=== PATIENT | female | born 1980 | race Caucasian/White ===

== ENCOUNTER 2019-07-28 14:42 | Inpatient (IN) | payer MEDICAID ==
[~2019-07-28] VITALS: Ht 162.6 cm; Wt 67.5 kg
[2019-07-28] MEDS ORDERED: magnesium hydroxide 30ml (MOM) UD suspension PO PRN (16:30)
[2019-07-28] MEDS ORDERED: loperamide 2mg capsule PO PRN (16:30)
[2019-07-28] MEDS ORDERED: traZODone 50mg tablet PO PRN (16:30)
[2019-07-28] MEDS ORDERED: LORazepam 0.5 MG tablet PO PRN (16:30)
[2019-07-28] MEDS ORDERED: acetaminophen 325mg tablet PO PRN ×2 (16:30)
[2019-07-28] MEDS ORDERED: mag hydrox/Alum hydrox/simeth 30ml oral suspension PO PRN (16:30)
[2019-07-28] MEDS ORDERED: quetiapine 100mg tablet PO PRN (16:30)
[2019-07-28 17:21] VITALS: BP 130/100
[2019-07-28] MEDS ORDERED: NO HOME MEDS (18:03)
--- NOTE | 2019-07-28 18:09 | NUR ---
ADMIT NOTE The patient is a 38 year old woman s/p suicide attempt via alcohol and Tylenol PM. ETOH level was 0.391. Minimizing attempt. Reported fighting with , drinking and overdose. Similar incident 9 months ago. Also another attempt at age 19. Tearful and emotional, "My decided to throw his ring at me and took off, I wanted to stop thinking about him, I wanted to go to sleep, I just took more and more Tylenol, I just wanted to go to sleep." has left with their daughter and patient is now alone and will go home to an empty house.
[2019-07-28 20:00] VITALS: BP 149/105
--- NOTE | 2019-07-29 01:51 | NUR ---
Nursing Progress Note: Legal hold: 5150 Client on involuntary status for DTS. Report received from TRAE Snow with use of SBAR. Why are they here: The patient is a 38 year old woman s/p suicide attempt via alcohol and Tylenol PM. ETOH level was 0.391. Minimizing attempt. Reported fighting with , drinking and overdose. Similar incident 9 months ago. Also another attempt at age 19. Tearful and emotional, "My decided to throw his ring at me and took off, I wanted to stop thinking about him, I wanted to go to sleep, I just took more and more Tylenol, I just wanted to go to sleep." has left with their daughter and patient is now alone and will go home to an empty house. Assessment What has happened this shift: The patient was seen at bedside for 1:1. She was quite teary eyed during interview. She reports that she wasn't trying to harm herself. "I just wanted to go to sleep and not have to think about him taking my child. I'm going through a divorce right now and I miss my daughter. She's with my , and he always puts his buddies ahead of us. He drops her off somewhere to go get drunk, and I have no idea where she is." The patient reports that she doesn't take any medication for depression or anything. She went to bed soon after this interview. S/I, H/I: +SI A/VH: Denies Sleep: See sleep assessment ADL's: Independent Group attendance: No groups at night Were meds taken: No meds ordered Any med S/E No Mental Status Exam Appearance: Well groomed woman with red hair, wearing green unit scrubs Eye contact: direct Behavior: Depressed, sad, crying Speech: Clear, normal rate/rhythm Mood: depressed Affect: Restricted Thought process: Linear Thought Content: Her child's well-being Cognition: A/Ox4 Insight: Poor Judgment: Poor Interventions PRN's used: None Therapeutic interventions: 1:1 assessment, active listening, medication administration/education/monitoring, reality orientation, show of support, ensured contract for safety, Q 15 min safety checks. Restraints/seclusion/emergency medication: N/A Justification of Continued Inpatient Treatment: Patient requires evaluation and treatment for depression before discharge to prevent further SA and re-admissions.
[2019-07-29 07:19] LABS: HEMOGLOBIN A1C 4.8 % (4.5-6.2)
[2019-07-29 07:21] LABS: CHOL/HDL RATIO 4.9 (0.00-4.99); CHOLESTEROL 257 MG/DL (0-200); HDL CHOLESTEROL 52 MG/DL (35-60); LDL CHOLESTEROL 177 MG/DL (50-100); TRIGLYCERIDES 87 MG/DL (20-135)
[2019-07-29 07:28] VITALS: BP 150/98
--- NOTE | 2019-07-29 10:00 | NUR ---
Group Therapy: Process Group This Clinicians goals for this process group were as follows: (1) Ask scaling questions about patients current anxiety, depression, and irritability symptoms as a check-in. (2) Share psychoeducation about emotional/situational triggers as they relate to the onset of unwanted mental health symptoms. (3) Identify examples of emotional/situational triggers within the group milieu. (4) Share psychoeducation on interventions as tools to reduce emotional escalation. (5) Identify several interventions within the group milieu that patients may utilizing in reducing emotional escalation caused by emotional/situational triggers. (6) Engage patients in discussion of the topics shared within the group milieu. Patient identified experiencing the following levels of anxiety, depression, and anger/irritability while present in the group milieu. Anxiety: 02/20 Depression: 02/20 Anger/irritability: 02/20 Patient presented as open and cooperative within the group milieu. Patient was dressed in nondescript personal clothing that was appropriate for the situation. Patient presented as nonobtrusive and verbally engaged within the group milieu. During the conversation on emotional/situational triggers, Patient identified that, "Going through a divorce," was an example of a situational trigger. In the context of identifying interventions that one could utilize to reduce the acuity of unwanted depression symptoms, Patient stated that being around people who could make her, "Laugh," helped her to reduce her depression symptoms. Patient noted that she drank extensively due to personal stress associated with going through a divorce, which led to her current hospitalization. Jt Angulo MA, DAILY Addendum: 07/29/19 at 1132 by Jt Angulo Amended: Links added.
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
[2019-07-29 20:11] VITALS: BP 144/98
[2019-07-30] MEDS ORDERED: propranolol 10mg tablet PO ONE (00:15)
--- NOTE | 2019-07-30 01:23 | NUR ---
Nursing Progress Note: Legal hold: 5150 Client on involuntary status for DTS. Report received from Edy RN with use of SBAR. Why are they here: The patient is a 38 year old woman s/p suicide attempt via alcohol and Tylenol PM. ETOH level was 0.391. Minimizing attempt. Reported fighting with , drinking and overdose. Similar incident 9 months ago. Also another attempt at age 19. Tearful and emotional, "My decided to throw his ring at me and took off, I wanted to stop thinking about him, I wanted to go to sleep, I just took more and more Tylenol, I just wanted to go to sleep." has left with their daughter and patient is now alone and will go home to an empty house. Assessment What has happened this shift: Pt in the group room engaging with a peer and watching TV. She remained here most of shift, returning to her room after snack. During assessment, pt was linear and goal-focused, inquiring as to the process for her hold and attempting to sort through the various providers she met with today. Pt is concerned about her job, stating "If I stay longer I may lose it. And I need to care for my home." Pt states she doesn't think getting back with her ex- is a good idea, and that she may give counseling another try "So long as it is different than my last experience. I did not relate to that counseling session." Pt denies SI but endorses anxiety 4/10. She states she doesn't really want to , but that her "thoughts race and overwhelm me and I just need them to stop." Pt is discussed former prescriptions of lisinopril and "maybe something for cholesterol"; Hospitalist note was entered late this evening with subsequent STAT propranolol due to physical findings. Pt's BP 126/95 and HR 98 at 0025, prior to administration. Pt not requesting any PRNs while here and seems to be coping and sleeping well. S/I, H/I: Denies A/VH: Denies Sleep: See sleep assessment ADL's: Independent Group attendance: N/A Were meds taken: Yes - STAT Propranolol 10mg Any med S/E: None reported, none observed Mental Status Exam Appearance: Clean and neat wearing personal clothing Eye contact: Direct Behavior: Watching tv, engaging with peers, attending snack Speech: Clear, normal rate/rhythm Mood: "Better", Endorsed anxiety /10 Affect: Blunted with occasional brightening Thought process: Linear Thought Content: discharging and process of [facility] Cognition: A/Ox4 Insight: Poor to fair Judgment: Poor to fair Interventions PRN's used: None Therapeutic interventions: 1:1 assessment, active listening, medication administration/education/monitoring, reality orientation, show of support, ensured contract for safety, Q 15 min safety checks. Restraints/seclusion/emergency medication: N/A Justification of Continued Inpatient Treatment: Patient requires evaluation and treatment for depression before discharge to prevent further SA and re-admissions.
[2019-07-30 07:45] VITALS: BP 135/99
[2019-07-30] MEDS: propranolol 10mg tablet PO SCH ×2 (08:17→20:41)
[2019-07-30] MEDS: atorvastatin 20mg tablet PO SCH (08:17)
[2019-07-30 09:23] LABS: CLARITY,URINE SLIGHTLY CLOUDY (Clear); GLUCOSE, URINE NEGATIVE (Neg); KETONES,URINE TRACE mg/dl (Neg); LEUKOCYTE ESTERASE ,URINE NEGATIVE (Neg); NITRITES, URINE NEGATIVE (Neg); OCCULT BLOOD,URINE LARGE (Neg); PROTEIN,URINE 30 mg/dl (Neg)
[2019-07-30 09:34] LABS: COLOR,URINE DARK YELLOW (Yellow); UA COLLECTION TYPE CLN CATCH MIDSTREAM
[2019-07-30 09:36] LABS: BACTERIA,URINE NONE SEEN /HPF (Neg); MUCUS STRANDS FEW /LPF (Neg); SQUAMOUS EPITHELIAL CELL,UR FEW /LPF (FEW); WBC,URINE 0-4 /HPF (0-4)
--- NOTE | 2019-07-30 10:00 | NUR ---
Group Therapy: Process Group This Clinicians goals for this process group were as follows: (1) Ask scaling questions about Patients current anxiety, depression, and irritability symptoms as a check-in. (2) Share with Patients psychoeducation about the importance of being able to identify safe, and supportive people who can assist them with their mental and emotional needs. (3) Share psychoeducation on interpersonal boundaries and considerations to assist Patients in developing the ability to discern which groups and individuals will be helpful in assisting them during times of emotional escalation and crisis. (4) Engage Patients in discussion of the topics discussed within the group milieu. Patient identified experiencing the following levels of anxiety, depression, and anger/irritability while present in the group milieu. Anxiety: 02/20 Depression: 02/20 Anger/irritability: 02/20 Patient presented as open and cooperative within the group milieu. Patient was dressed in nondescript personal clothing that was appropriate for the setting. Patient presented as verbally engaged and nonobtrusive within the group setting. When asked by this Clinician whom she could identify as a close person who she could put on a, "Safety plan," in the case of an emergency, Patient identified her Sister. Patient shared her impression that she needed to be wary about what information she shared with casual friends, regarding her mental health issues because she didn't want her friends to feel that they had to, "Take care of me," instead of simply including her in social activities. Jt Angulo MA, DAILY Addendum: 07/30/19 at 1125 by Jt Angulo SS Amended: Links added.
[2019-07-30 10:26] LABS: HCG SERUM QL NEGATIVE
--- NOTE | 2019-07-30 15:42 | NUR ---
NURSING PROGRESS NOTE Legal hold: 5150 Client on involuntary status for DTS. Report received from TRAE Berg with use of SBAR. Why are they here: The patient is a 38 year old woman who attempted suicide via alcohol and Tylenol PM. ETOH level was 0.391. Minimizing attempt. Reported fighting with , drinking and overdose. Similar incident 9 months ago. Also another attempt at age 19. Tearful and emotional, "My decided to throw his ring at me and took off, I wanted to stop thinking about him, I wanted to go to sleep, I just took more and more Tylenol, I just wanted to go to sleep." has left with their daughter and patient is now alone and will go home to an empty house. Assessment What has happened this shift: Patient was awake in her bed at the change of shift. She was cooperative with patient assessment. She denies depression, anxiety, SI, HI, and A/V H. Clarifying possible suicidal thoughts, she indicated she feels safe going home. She stated, I dont want to . Pt minimizes her suicide attempt saying she just wanted to go to sleep. She justified her alcohol use indicating that she is tempted to drink because her drinks. She became tearful as she talked about her daughter. Pt indicated that her mom and sister are her support system. Pt up to the group room for meals. She attended AM group. She was up in the group room during the afternoon. S/I, H/I: Denies A/VH: Denies Sleep: Slept well during the night ADL's: Independent Group attendance: Yes Were meds taken: Yes Any med S/E: None reported or observed Mental Status Exam Appearance: Neat and clean Eye contact: Direct Behavior: Pleasant and cooperative Speech: Normal rate and rhythm Mood: Sad Affect: Constricted Thought process: Linear and connected Thought Content: Misses her daughter Cognition: A/Ox4 Insight: Poor Judgment: fair Interventions PRN's used: None Therapeutic interventions: 1:1 assessment, active listening, medication administration/education/monitoring, reality orientation, show of support, ensured contract for safety, monitored labs, Q 15 min safety checks. Restraints/seclusion/emergency medication: N/A Justification of Continued Inpatient Treatment: Justification for continued patient stay: Pt. requires interruption of current crisis; medication adjustments and monitoring for effects; and a safe and therapeutic environment.
[2019-07-30 20:00] VITALS: BP 146/101
[2019-07-30 20:23] LABS: BASOPHILS # (AUTO) 0.1 X10'3 (0-0.2); BASOPHILS % (AUTO) 0.7 % (0-1); EOSINOPHILS # (AUTO) 0.8 X10'3 (0-0.9); EOSINOPHILS % (AUTO) 6.5 % (0-6); HEMATOCRIT 33.4 % (35.0-45.0); HEMOGLOBIN 11.1 g/dl (12.0-16.0); LYMPHOCYTES # (AUTO) 3.2 X10'3 (1.1-4.8); LYMPHOCYTES % (AUTO) 26.4 % (21-51); MEAN CORPUSCULAR HEMOGLOBIN 39.4 PG (27.0-31.0); MEAN CORPUSCULAR HGB CONC 33.4 g/dL (33.0-36.5); MONOCYTES # (AUTO) 0.9 X10'3 (0-0.9); MONOCYTES % (AUTO) 7.3 % (2-12); NEUTROPHILS # (AUTO) 7.1 X10'3 (1.8-7.7); NEUTROPHILS % (AUTO) 59.1 % (42-75); PLATELET COUNT 189 X10'3 (140-440); RED BLOOD COUNT 2.83 X10'6 (4.20-5.60); RED CELL DISTRIBUTION WIDTH 23.6 % (11.5-14.5)
[2019-07-30 20:38] LABS: PLATELET ESTIMATE NORMAL
[2019-07-30 20:39] LABS: ALANINE AMINOTRANSFERASE 123 U/L (12-78); ALBUMIN 3.7 G/DL (3.4-5.0); ALBUMIN/GLOBULIN RATIO 0.7 (1.1-1.5); ALKALINE PHOSPHATASE 95 IU/L (46-116); ANION GAP 11 (8-16); ANISOCYTOSIS 3+; ASPARTATE AMINO TRANSFERASE 184 U/L (10-37); BILIRUBIN,TOTAL 0.3 MG/DL (0.1-1.0); BLOOD UREA NITROGEN 11 MG/DL (7-18); BUN/CREATININE RATIO 10.7 (6.6-38.0); CALCIUM 9.8 MG/DL (8.5-10.1); CHLORIDE 103 MMOL/L (99-107); CREATININE 1.03 MG/DL (0.40-0.90); GLUCOSE 89 MG/DL (70-104); POLYCHROMASIA 2+; POTASSIUM 3.7 MMOL/L (3.5-5.1); SODIUM 139 MMOL/L (135-145); TOTAL CARBON DIOXIDE 25.1 MMOL/L (24-32); TOTAL PROTEIN 8.7 G/DL (6.4-8.2); eGFR 60 ML/MIN
[2019-07-30 20:47] LABS: MAGNESIUM 1.9 MG/DL (1.5-2.4); PHOSPHORUS 4.7 MG/DL (2.3-4.5)
--- NOTE | 2019-07-31 00:56 | NUR ---
Nursing Progress Note: Legal hold: 5150 Ex 07/31/19 @1620 Client on involuntary status for DTS. Report received from TRAE Martini with use of SBAR. Why are they here: The patient is a 38 year old woman s/p suicide attempt via alcohol and Tylenol PM. ETOH level was 0.391. Minimizing attempt. Reported fighting with , drinking and overdose. Similar incident 9 months ago. Also another attempt at age 19. Tearful and emotional, "My decided to throw his ring at me and took off, I wanted to stop thinking about him, I wanted to go to sleep, I just took more and more Tylenol, I just wanted to go to sleep." has left with their daughter and patient is now alone and will go home to an empty house. Assessment What has happened this shift: Pt was in her room coloring during shift change. She states that she was trying to stay out of the drama and that she had a pretty good day. Pt states that she is ready to get her life on the right path. She is ready to go back to work and doesnt want to lose her house. She states that she knows that things are not going to be the same because her ex- will not be there but she feels this will be better as there wont be so much stress with all the arguing and him coming in and out all the time. When asked about S/I, she denies and she states that it was never her intention to end her life it was just her trying to stop thinking about him and stopping the emotions and going to sleep. Which she is aware that that is the wrong way to do it. Pt is very goal oriented and is looking forward to going back home to her daughter and is willing to do some kind of counseling. She was cooperative during 1:1 physical assessment and took her HS medication. She spent some more time in rec room watching TV and socializing appropriately with other patients before going to sleep. CMP, CBC/diff, and THS lab draw done. Refer to labs. New order for levothyroxine 25mg in place, also elevated LFTs order for Hep panel, HIV, and liver US in place for this morning. S/I, H/I: Denies A/VH: Denies Sleep: Currently sleeping, see sleep assessment for total hours ADL's: Independent Group attendance: N/A Were meds taken: Yes Any med S/E: None reported, none observed Mental Status Exam Appearance: Clean and neat wearing personal clothing Eye contact: Direct Behavior: Calm, cooperative, pleasant, socializing with peers Speech: Clear, normal rate/rhythm Mood: "I'm good, feel ready to go home" Affect: Appropriate, congruent with mood Thought process: Linear Thought Content: discharging, meds, family, goal oriented, minimizing all symptoms Cognition: A/Ox4 Insight: Poor to fair Judgment: Poor to fair Interventions PRN's used: None Therapeutic interventions: 1:1 assessment, active listening, medication administration/education/monitoring, reality orientation, show of support, ensured contract for safety, Q 15 min safety checks. Restraints/seclusion/emergency medication: N/A Justification of Continued Inpatient Treatment: Patient requires evaluation and treatment for depression before discharge to prevent further SA and re-admissions.
[2019-07-31] MEDS: levoTHYROXINE 25mcg tablet PO SCH (07:09)
[2019-07-31 08:00] VITALS: BP 138/107
[2019-07-31] MEDS: atorvastatin 20mg tablet PO SCH (08:12)
[2019-07-31] MEDS: propranolol 10mg tablet PO SCH ×2 (08:12→20:28)
[2019-07-31 08:13] LABS: BASOPHILS # (AUTO) 0.1 X10'3 (0-0.2); BASOPHILS % (AUTO) 0.9 % (0-1); EOSINOPHILS # (AUTO) 0.7 X10'3 (0-0.9); HEMOGLOBIN 10.9 g/dl (12.0-16.0); LYMPHOCYTES # (AUTO) 2.7 X10'3 (1.1-4.8); LYMPHOCYTES % (AUTO) 24.8 % (21-51); MEAN CORPUSCULAR HEMOGLOBIN 40.2 PG (27.0-31.0); MEAN CORPUSCULAR VOLUME 118.4 FL (78-98); MONOCYTES # (AUTO) 0.8 X10'3 (0-0.9); MONOCYTES % (AUTO) 7.9 % (2-12); NEUTROPHILS # (AUTO) 6.4 X10'3 (1.8-7.7); NEUTROPHILS % (AUTO) 59.4 % (42-75); PLATELET COUNT 218 X10'3 (140-440); RED CELL DISTRIBUTION WIDTH 23.7 % (11.5-14.5); WHITE BLOOD COUNT 10.7 X10'3 (4.5-11.0)
[2019-07-31 08:31] LABS: ALANINE AMINOTRANSFERASE 117 U/L (12-78); ALBUMIN 3.5 G/DL (3.4-5.0); ALBUMIN/GLOBULIN RATIO 0.8 (1.1-1.5); ALKALINE PHOSPHATASE 80 IU/L (46-116); ANION GAP 13 (8-16); ASPARTATE AMINO TRANSFERASE 180 U/L (10-37); BILIRUBIN,TOTAL 0.4 MG/DL (0.1-1.0); BLOOD UREA NITROGEN 12 MG/DL (7-18); BUN/CREATININE RATIO 15.8 (6.6-38.0); CALCIUM 9.3 MG/DL (8.5-10.1); CHLORIDE 104 MMOL/L (99-107); CREATININE 0.76 MG/DL (0.40-0.90); GLUCOSE 92 MG/DL (70-104); MAGNESIUM 2.1 MG/DL (1.5-2.4); PHOSPHORUS 5.2 MG/DL (2.3-4.5); SODIUM 139 MMOL/L (135-145); TOTAL CARBON DIOXIDE 21.6 MMOL/L (24-32); TOTAL PROTEIN 8.1 G/DL (6.4-8.2); eGFR 85 ML/MIN
[2019-07-31 08:59] LABS: ANISOCYTOSIS 3+; PLATELET ESTIMATE NORMAL; POLYCHROMASIA FEW
[2019-07-31 09:41] LABS: HIV ANTIBODY 1&2 RAPID NON-REACTIVE (Neg)
--- NOTE | 2019-07-31 10:00 | NUR ---
Group Therapy: Process Group This Clinicians goals for this process group were as follows: (1) Ask scaling questions about patients current anxiety, depression, and irritability symptoms as a check-in. (2) Share psychoeducation about emotional relaxation techniques with patients, including information on: mindfulness, meditation controlled breathing, progressive muscle relaxation, guided visualization. (3) Model and practice controlled breathing, progressive muscle relaxation, and guided visualization with patients within the group milieu. (4) Process patients comments and reflections on the before-mentioned activities after they have participated in them. Patient identified experiencing the following levels of anxiety, depression, and anger/irritability while present in the group milieu. Anxiety: 04/20 Depression: 02/20 Anger/irritability: 02/20 Patient presented as open and cooperative within the group milieu. Patient was dressed in nondescript personal clothing--a black shirt and missael pants that were appropriate for the setting. Patient presented as verbally engaged and nonobtrusive during psychoeducation, the modeling and the practice of controlled breathing, progressive muscle relaxation, and guided visualization. Patient shared that a positive memory that she identified as a potential, "Safe place," was time that she had spent in the past near and around the ocean. This Clinician checked in again regarding her subjective impression of her anxiety symptoms at the end of the session to see if her number decreased from a 3/10. Patient reported that it remained at a 3/10 and that she was frustrated that she had to stay in the medical milieu for another day. Jt Angulo MA, DAILY Addendum: 07/31/19 at 1124 by Jt Angulo SS Amended: Links added.
--- NOTE | 2019-07-31 16:06 | NUR ---
Nursing Progress Note Client on voluntary status Report received from Kim Kaur RN with use of SBAR. Why are they here: The patient is a 38 year old woman s/p suicide attempt via alcohol and Tylenol PM. ETOH level was 0.391. Minimizing attempt. Reported fighting with , drinking and overdose. Similar incident 9 months ago. Also another attempt at age 19. Tearful and emotional, "My decided to throw his ring at me and took off, I wanted to stop thinking about him, I wanted to go to sleep, I just took more and more Tylenol, I just wanted to go to sleep." has left with their daughter and patient is now alone and will go home to an empty house. Assessment What has happened this shift: Hep panel, HIV, CXR, liver US and Thyroid US completed. Pt NPO after breakfast. Pt states she is on a gluten free diet. She denies SI at this time. She is now voluntary and wants to go home tomorrow so she can go back to work. S/I, H/I: Denies A/VH: Denies Sleep: Currently sleeping, see sleep assessment for total hours ADL's: Independent Group attendance: Yes Were meds taken: Yes Any med S/E: None reported, none observed Mental Status Exam Appearance: Clean, wearing all black clothing Eye contact: Direct Behavior: Calm, Cooperative Speech: Clear, normal rate/rhythm Mood: Appears depressed; states she is concerned over finances Affect: Appropriate, congruent with mood Thought process: Linear Thought Content: finances; going home Cognition: A/Ox4 Insight: Fair Judgment: Fair Interventions PRN's used: None Therapeutic interventions: 1:1 assessment, provided therapeutic communication and active listening, medication administration/education/monitoring, Q 15 min safety checks. Restraints/seclusion/emergency medication: N/A Justification of Continued Inpatient Treatment: Patient requires evaluation and treatment for depression before discharge to prevent further SA and re-admissions.
--- NOTE | 2019-07-31 16:15 | NUR ---
1:1- Brief Interventions- Alcohol use; Safety Planning Presenting Issues: Pt's AUDIT score suggests that pt's current drinking behaviors puts her at risk of developing serious health problems. Pt & her family have disclosed multiple incidences of pt overdosing and alcohol use. Interventions: SS met with pt and engaged her in Brief Interventions via [place] strategies to assess pt's willingness to engage in services/treatment to address her use of alcohol. Per discussion, has weighed the pros & cons of services and is now open to engage with a provider. SS also engaged pt in developing a Crisis Episode Safety Plan, pt able to identify warning signs of a potential crisis, activities that she can engage in to distract from her having to perseverate on negatives, people in her life that she can call when her emotional percolator starts to [facility], local & national agencies that can provide telephonic support, local crisis service providers. Pt also will get rid of all alcoholic beverages in he home and toss out OTCs she has at home. Pt plans to talk to her mother & ex about how to ensure safety for her 7y/o dtr when pt experience depression again. Plan SS will contact [facility] to coordinate dcp. Pt to discharge tomorrow. Heather Fulton LCSW Addendum: 07/31/19 at 1658 by Heather Fulton Amended: Links added.
--- NOTE | 2019-07-31 16:58 | NUR ---
DCP Presenting Issues: Pt's scheduled to d/c tomorrow, attending physician requesting SS support to facilitate dcp. Interventions: SS met w/pt and engaged her in dcp activities. Per discussion, pt is now willing to access outpatient psychiatric care. SS had t/c with [facility] and coordinated dcp. Plan: Pt to d/c tomorrow. Heather Fulton LCSW Addendum: 07/31/19 at 1701 by Heather Fulton Amended: Links added.
[2019-07-31 20:06] VITALS: BP 136/92
[2019-07-31] MEDS: busPIRone 5mg tablet PO SCH (20:28)
--- NOTE | 2019-08-01 00:14 | NUR ---
Nursing Progress Note: Legal hold: VOL Client on involuntary status for DTS. Report received from TRAE Mccain with use of SBAR. Why are they here: The patient is a 38 year old woman s/p suicide attempt via alcohol and Tylenol PM. ETOH level was 0.391. Minimizing attempt. Reported fighting with , drinking and overdose. Similar incident 9 months ago. Also another attempt at age 19. Tearful and emotional, "My decided to throw his ring at me and took off, I wanted to stop thinking about him, I wanted to go to sleep, I just took more and more Tylenol, I just wanted to go to sleep." has left with their daughter and patient is now alone and will go home to an empty house. Assessment What has happened this shift: Pt was in rec room watching TV during shift change. She states that she is fine with staying here for another 24 hours but is eager to go home as she needs to go back to work. She denies any S/I, H/I, depression and states that she is feeling a little anxious but is all related to all these medical procedures that she was getting done earlier. She was cooperative during 1:1physical assessment and took all her meds. She did have some questions about her medications since she wasnt sure what all she was taking. This RN provided education and she demonstrated understanding. She was also concerned about not being able to pick them up from her pharmacy after she gets discharge because she will not have a vehicle. PT states that she does not want to stay here longer than tomorrow morning. PT retired to bed after she received her medications. S/I, H/I: Denies A/VH: Denies Sleep: Currently sleeping, see sleep assessment for total hours ADL's: Independent Group attendance: N/A Were meds taken: Yes Any med S/E: None reported, none observed Mental Status Exam Appearance: Clean and neat wearing personal clothing Eye contact: Direct Behavior: Calm, cooperative, pleasant, socializing with peers Speech: Clear, normal rate/rhythm Mood: Euthymic Affect: Appropriate, congruent with mood Thought process: Linear Thought Content: discharging, meds, family, goal oriented, work Cognition: A/Ox4 Insight: Poor to fair Judgment: Poor to fair Interventions PRN's used: None Therapeutic interventions: 1:1 assessment, active listening, medication administration/education/monitoring, reality orientation, show of support, ensured contract for safety, Q 15 min safety checks. Restraints/seclusion/emergency medication: N/A Justification of Continued Inpatient Treatment: Patient requires evaluation and treatment for depression before discharge to prevent further SA and re-admissions.
[2019-08-01 06:32] LABS: BASOPHILS # (AUTO) 0.1 X10'3 (0-0.2); BASOPHILS % (AUTO) 1.3 % (0-1); EOSINOPHILS # (AUTO) 0.6 X10'3 (0-0.9); EOSINOPHILS % (AUTO) 6.8 % (0-6); HEMATOCRIT 34.5 % (35.0-45.0); HEMOGLOBIN 11.5 g/dl (12.0-16.0); LYMPHOCYTES # (AUTO) 2.2 X10'3 (1.1-4.8); LYMPHOCYTES % (AUTO) 23.8 % (21-51); MEAN CORPUSCULAR HEMOGLOBIN 39.3 PG (27.0-31.0); MEAN CORPUSCULAR HGB CONC 33.2 g/dL (33.0-36.5); MEAN CORPUSCULAR VOLUME 118.2 FL (78-98); MEAN PLATELET VOLUME 8.1 FL (7.4-10.4); MONOCYTES # (AUTO) 0.9 X10'3 (0-0.9); MONOCYTES % (AUTO) 9.9 % (2-12); NEUTROPHILS # (AUTO) 5.3 X10'3 (1.8-7.7); NEUTROPHILS % (AUTO) 58.2 % (42-75); PLATELET COUNT 226 X10'3 (140-440); RED BLOOD COUNT 2.92 X10'6 (4.20-5.60); RED CELL DISTRIBUTION WIDTH 23.3 % (11.5-14.5); WHITE BLOOD COUNT 9.2 X10'3 (4.5-11.0)
[2019-08-01 06:45] LABS: ALANINE AMINOTRANSFERASE 127 U/L (12-78); ALBUMIN 3.6 G/DL (3.4-5.0); ALBUMIN/GLOBULIN RATIO 0.8 (1.1-1.5); ALKALINE PHOSPHATASE 80 IU/L (46-116); ANION GAP 11 (8-16); ASPARTATE AMINO TRANSFERASE 171 U/L (10-37); BILIRUBIN,TOTAL 0.3 MG/DL (0.1-1.0); BLOOD UREA NITROGEN 13 MG/DL (7-18); BUN/CREATININE RATIO 17.1 (6.6-38.0); CALCIUM 9.6 MG/DL (8.5-10.1); CHLORIDE 106 MMOL/L (99-107); CREATININE 0.76 MG/DL (0.40-0.90); GLUCOSE 92 MG/DL (70-104); MAGNESIUM 2.2 MG/DL (1.5-2.4); PHOSPHORUS 5.7 MG/DL (2.3-4.5); POTASSIUM 3.6 MMOL/L (3.5-5.1); SODIUM 141 MMOL/L (135-145); TOTAL CARBON DIOXIDE 24.5 MMOL/L (24-32); eGFR 85 ML/MIN
[2019-08-01] MEDS: levoTHYROXINE 25mcg tablet PO SCH (06:53)
[2019-08-01 07:15] LABS: PLATELET ESTIMATE NORMAL
[2019-08-01 07:16] LABS: POLYCHROMASIA 1+
[2019-08-01 07:17] LABS: ANISOCYTOSIS 3+; ROULEAUX 1+; TEAR DROP CELLS FEW
[2019-08-01 08:00] VITALS: BP 141/98
[2019-08-01] MEDS: propranolol 10mg tablet PO SCH (08:16)
[2019-08-01] MEDS: busPIRone 5mg tablet PO SCH (08:16)
[2019-08-01] MEDS: atorvastatin 20mg tablet PO SCH (08:16)
[2019-08-01] MEDS ORDERED: BUSP5TAB26 PO (08:42)
[2019-08-01] MEDS ORDERED: PROP10TA10 PO (08:42)
[2019-08-01] MEDS ORDERED: ATOR20TA66 PO (08:42)
[2019-08-01] MEDS ORDERED: LEVO25TA7 PO (08:42)
[2019-08-01] MEDS ORDERED: TRAZ-251 PO (08:42)
--- NOTE | 2019-08-01 10:00 | NUR ---
DISCHARGE NOTE Pt was brought into the hospital s/p SA via ETOH and Tylenol PM. ETOH level was 0.391. Reported Similar incident 9 months ago. Also another attempt at age 19. Tearful and emotional, "My decided to throw his ring at me and took off, I wanted to stop thinking about him, I wanted to go to sleep, I just took more and more Tylenol, I just wanted to go to sleep." has left with their daughter. Pt was treated in the hospital for the following: Per Dr. 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 "significant anxiety which is also observable, this anxiety has led to poor judgment recently, impulsivity, putting her life at risk, I think is important that we start to treat her anxiety see her tolerance to medication, she seems to have some insight into her issues and problems, however she will be needing long-term psychotherapy which she understands, apparently concerned about her going back to her house where she will be alone by herself. She agreed to start buspirone 5 mg p.o. 3 times daily." Pt's personal property inventoried and signed out by pt and NANCY Vail. Medications from the pharmacy returned to pt and pt signed pharmacy discharge medication list. Pt is not a smoker. She declined smoking cessation information. Pt educated to follow up appointments through [facility] and documents of times and dates provided. 14 day medication prescriptions for all medications called into pharmacy of choice.
[2019-08-01 13:10] LABS: HBSAG SCREEN Negative (Negative); HEP A AB, IGM Negative (Negative); HEP B CORE AB, IGM Negative (Negative); HEPATITIS C ANTIBODY <0.1 s/co ratio (0.0-0.9)
--- NOTE | 2019-08-03 07:59 | NUR ---
Discharge Pt's d/c'd over the weekend w/plan to f/u with [facility]. referral's closed. GREGORY KearnsW Addendum: 08/03/19 at 0800 by Heather Fulton Amended: Links added.
== END 2019-08-01 10:00 | disposition home or self-care (01) | DRG 755 ==
LOC: ADULT MH 14:42
PROVIDERS: ADMIT Psychiatry & Neurology Psychiatry; ATTEND Psychiatry & Neurology Psychiatry
DX: F43.25 Adjustment disorder with mixed disturbance of emotions and conduct (principal); D53.9 Nutritional anemia, unspecified; E78.5 Hyperlipidemia, unspecified; T39.1X2A Poisoning by 4-Aminophenol derivatives, intentional self-harm, initial encounter; F32.9 Major depressive disorder, single episode, unspecified; F41.9 Anxiety disorder, unspecified; R00.0 Tachycardia, unspecified; Z60.2 Problems related to living alone; F17.210 Nicotine dependence, cigarettes, uncomplicated; R79.89 Other specified abnormal findings of blood chemistry; R94.6 Abnormal results of thyroid function studies; I10 Essential (primary) hypertension; Z63.0 Problems in relationship with spouse or partner; Z79.890 Hormone replacement therapy; Z98.891 History of uterine scar from previous surgery; Y92.89 Other specified places as the place of occurrence of the external cause; Z88.5 Allergy status to narcotic agent; Z72.89 Other problems related to lifestyle
CPT/HCPCS: 36415; 71045; 76536; 76700; 80053; 80061; 81001; 82607; 83036; 83735; 84100; 84439; 84443; 84703; 85025; 86703; 86705; 86706; 86709; 86803; 87081; 87340; 99285

== ENCOUNTER 2019-08-08 16:18 | Emergency (ER) | payer MEDICAID ==
[~2019-08-08] VITALS: Ht 165.1 cm; Wt 79.5 kg
[~2019-08-08 16:18] MED LIST: ATOR20TA66 PO; BUSP5TAB26 PO; LEVO25TA7 PO; PROP10TA10 PO; TRAZ-251 PO
[2019-08-08 17:07] LABS: BASOPHILS # (AUTO) 0.1 X10'3 (0-0.2); BASOPHILS % (AUTO) 0.8 % (0-1); EOSINOPHILS # (AUTO) 0.2 X10'3 (0-0.9); EOSINOPHILS % (AUTO) 1.7 % (0-6); HEMOGLOBIN 11.9 g/dl (12.0-16.0); LYMPHOCYTES # (AUTO) 3.4 X10'3 (1.1-4.8); LYMPHOCYTES % (AUTO) 38.9 % (21-51); MEAN CORPUSCULAR HEMOGLOBIN 38.2 PG (27.0-31.0); MEAN CORPUSCULAR HGB CONC 34.1 g/dL (33.0-36.5); MEAN CORPUSCULAR VOLUME 112.1 FL (78-98); MEAN PLATELET VOLUME 7.1 FL (7.4-10.4); MONOCYTES # (AUTO) 0.6 X10'3 (0-0.9); MONOCYTES % (AUTO) 6.5 % (2-12); NEUTROPHILS # (AUTO) 4.6 X10'3 (1.8-7.7); NEUTROPHILS % (AUTO) 52.1 % (42-75); PLATELET COUNT 314 X10'3 (140-440); RED BLOOD COUNT 3.12 X10'6 (4.20-5.60); RED CELL DISTRIBUTION WIDTH 22.7 % (11.5-14.5); WHITE BLOOD COUNT 8.8 X10'3 (4.5-11.0)
[2019-08-08 17:20] LABS: ALANINE AMINOTRANSFERASE 112 U/L (12-78); ALBUMIN 3.2 G/DL (3.4-5.0); ALBUMIN/GLOBULIN RATIO 0.8 (1.1-1.5); ALKALINE PHOSPHATASE 79 IU/L (46-116); ANION GAP 13 (8-16); ASPARTATE AMINO TRANSFERASE 160 U/L (10-37); BILIRUBIN,TOTAL 0.2 MG/DL (0.1-1.0); BLOOD UREA NITROGEN 9 MG/DL (7-18); BUN/CREATININE RATIO 11.8 (6.6-38.0); CALCIUM 7.9 MG/DL (8.5-10.1); CHLORIDE 112 MMOL/L (99-107); CREATININE 0.76 MG/DL (0.40-0.90); GLUCOSE 133 MG/DL (70-104); POTASSIUM 3.4 MMOL/L (3.5-5.1); SODIUM 152 MMOL/L (135-145); TOTAL CARBON DIOXIDE 27.1 MMOL/L (24-32); TOTAL PROTEIN 7.1 G/DL (6.4-8.2); eGFR 85 ML/MIN
[2019-08-08 17:22] LABS: ACETAMINOPHEN < 2.0 UG/ML (10-30)
[2019-08-08 17:30] LABS: ETHANOL 0.439 GM/DL (0.0-0.010)
[2019-08-08 17:54] LABS: URINE HCG NEGATIVE (NEG)
[2019-08-08 18:11] LABS: URINE AMPHETAMINE SCREEN NEGATIVE (Neg); URINE BARBITUATE SCREEN NEGATIVE (Neg); URINE BENZODIAZEPINES SCREEN NEGATIVE (Neg); URINE CANNABINOID SCREEN NEGATIVE (Neg); URINE COCAINE SCREEN NEGATIVE (Neg); URINE METHADONE SCREEN NEGATIVE (Neg); URINE OPIATE SCREEN NEGATIVE (Neg); URINE PHENCYCLIDINE SCREEN NEGATIVE (Neg)
[2019-08-08] MEDS ORDERED: normal saline 1000ML IV soln IVB ONE (18:20)
[2019-08-08] MEDS ORDERED: BUSP5TAB3 PO (19:04)
[2019-08-08] MEDS ORDERED: ATOR20TA PO (19:04)
[2019-08-08] MEDS ORDERED: TRAZ-251 PO (19:05)
[2019-08-08] MEDS ORDERED: PROP10TA10 PO (19:05)
[2019-08-08] MEDS ORDERED: LEVO25TA7 PO (19:05)
[2019-08-08 19:59] LABS: ALBUMIN 3.2 G/DL (3.4-5.0); ANION GAP 15 (8-16); BLOOD UREA NITROGEN 9 MG/DL (7-18); BUN/CREATININE RATIO 11.8 (6.6-38.0); CALCIUM 7.4 MG/DL (8.5-10.1); CHLORIDE 113 MMOL/L (99-107); CREATININE 0.76 MG/DL (0.40-0.90); GLUCOSE 120 MG/DL (70-104); POTASSIUM 3.4 MMOL/L (3.5-5.1); SODIUM 151 MMOL/L (135-145); TOTAL CARBON DIOXIDE 23.3 MMOL/L (24-32); eGFR 85 ML/MIN
[2019-08-08 20:24] VITALS: BP 140/98
== END 2019-08-08 21:05 | disposition home or self-care (01) ==
LOC: ER 16:19
DX: F10.129 Alcohol abuse with intoxication, unspecified (principal); I10 Essential (primary) hypertension; Z98.890 Other specified postprocedural states; Z88.5 Allergy status to narcotic agent; Z79.899 Other long term (current) drug therapy; Y90.0 Blood alcohol level of less than 20 mg/100 ml
CPT/HCPCS: 36415; 80048; 80053; 80305; 80320; 80329; 81025; 85025; 99285; J7030

== ENCOUNTER 2021-07-13 11:12 | Inpatient (IN) | payer MEDICAID ==
[~2021-07-13] VITALS: Ht 162.6 cm; Wt 71.9 kg
[~2021-07-13 11:12] MED LIST changes: +ATOR20TA PO; -ATOR20TA66 PO; -BUSP5TAB26 PO; +BUSP5TAB3 PO
[2021-07-13 11:36] LABS: BASOPHILS # (AUTO) 0.1 X10'3 (0-0.2); BASOPHILS % (AUTO) 0.5 % (0-1); EOSINOPHILS # (AUTO) 0.1 X10'3 (0-0.9); EOSINOPHILS % (AUTO) 0.5 % (0-6); HEMATOCRIT 34.6 % (35.0-45.0); HEMOGLOBIN 11.3 g/dl (12.0-16.0); LYMPHOCYTES # (AUTO) 2.1 X10'3 (1.1-4.8); LYMPHOCYTES % (AUTO) 16.9 % (21-51); MEAN CORPUSCULAR HEMOGLOBIN 30.8 PG (27.0-31.0); MEAN CORPUSCULAR HGB CONC 32.7 g/dL (33.0-36.5); MEAN CORPUSCULAR VOLUME 94.2 FL (78-98); MEAN PLATELET VOLUME 7.5 FL (7.4-10.4); MONOCYTES # (AUTO) 1.3 X10'3 (0-0.9); MONOCYTES % (AUTO) 10.9 % (2-12); NEUTROPHILS # (AUTO) 8.8 X10'3 (1.8-7.7); NEUTROPHILS % (AUTO) 71.2 % (42-75); PLATELET COUNT 76 X10'3 (140-440); RED BLOOD COUNT 3.67 X10'6 (4.20-5.60); RED CELL DISTRIBUTION WIDTH 19.8 % (11.5-14.5); WHITE BLOOD COUNT 12.4 X10'3 (4.5-11.0)
[2021-07-13 11:50] LABS: ALANINE AMINOTRANSFERASE 47 U/L (12-78); ALBUMIN 2.9 G/DL (3.4-5.0); ALBUMIN/GLOBULIN RATIO 0.7 (1.1-1.5); ALKALINE PHOSPHATASE 73 IU/L (46-116); ANION GAP 13 (8-16); ASPARTATE AMINO TRANSFERASE 61 U/L (10-37); BILIRUBIN,TOTAL 1.6 MG/DL (0.1-1.0); BLOOD UREA NITROGEN 9 MG/DL (7-18); BUN/CREATININE RATIO 9.3 (6.6-38.0); CALCIUM 8.8 MG/DL (8.5-10.1); CHLORIDE 104 MMOL/L (99-107); CREATININE 0.97 MG/DL (0.40-0.90); GLUCOSE 86 MG/DL (70-104); POTASSIUM 3.2 MMOL/L (3.5-5.1); SODIUM 138 MMOL/L (135-145); TOTAL CARBON DIOXIDE 20.7 MMOL/L (24-32); eGFR 64 ML/MIN
[2021-07-13 11:58] LABS: ETHANOL < 0.010 GM/DL (0.0-0.010)
[2021-07-13 12:11] LABS: URINE HCG NEGATIVE (NEG)
[2021-07-13 12:12] LABS: CLARITY,URINE CLEAR (Clear); COLOR,URINE YELLOW (Yellow); GLUCOSE, URINE NEGATIVE (Neg); KETONES,URINE NEGATIVE (Neg); LEUKOCYTE ESTERASE ,URINE NEGATIVE (Neg); NITRITES, URINE NEGATIVE (Neg); OCCULT BLOOD,URINE TRACE-INTACT (Neg); PH,URINE 7.5 (4.8-8.0); PROTEIN,URINE NEGATIVE (Neg); UROBILINOGEN,URINE 0.2 E.U/dL (0.2-1.0)
[2021-07-13 12:15] LABS: UA COLLECTION TYPE CLN CATCH MIDSTREAM
[2021-07-13 12:20] LABS: ANISOCYTOSIS 2+; PLATELET ESTIMATE DECREASED
[2021-07-13 12:22] LABS: SQUAMOUS EPITHELIAL CELL,UR FEW /LPF (FEW)
[2021-07-13 12:24] LABS: BACTERIA,URINE NONE SEEN /HPF (Neg); RBC,URINE 0-2 /HPF (0-2); WBC,URINE 0-4 /HPF (0-4)
--- NOTE | 2021-07-13 12:30 | NUR ---
Pt brought to the unit from main ED. Her brother is with her. She is on a 5150. Pt denies SI/HI. She lives with her brother and his . Pt reports she will be going to a rehab center "soon." Pt has a history of Hyperbilirubinemia, Jaundice, ETOH abuse, Vitamin D deficiency, Iron excess and Tbrombocytopenia. Notified her treating provider, Marcela Paul NP at [facility] for updated eMAR. SEE Pt's chart. Pt's property inventoried and pt is now on her bed calm and cooperative.
--- NOTE | 2021-07-13 12:49 | NUR ---
Patient was referred here on 0420 hold by [facility] chief maintenance supervisor Cy Chavarria who can be contacted at [phone].
[2021-07-13 13:11] LABS: URINE AMPHETAMINE SCREEN NEGATIVE (Neg); URINE BARBITUATE SCREEN NEGATIVE (Neg); URINE BENZODIAZEPINES SCREEN NEGATIVE (Neg); URINE CANNABINOID SCREEN NEGATIVE (Neg); URINE COCAINE SCREEN NEGATIVE (Neg); URINE METHADONE SCREEN NEGATIVE (Neg); URINE OPIATE SCREEN NEGATIVE (Neg); URINE PHENCYCLIDINE SCREEN NEGATIVE (Neg)
[2021-07-13] MEDS ORDERED: LEVO50TA8 PO (14:09)
[2021-07-13] MEDS ORDERED: FOLI1TAB27 PO (14:09)
[2021-07-13] MEDS ORDERED: FERR325T29 PO (14:09)
[2021-07-13] MEDS ORDERED: SPIR50TA5 PO ×2 (14:09→18:30)
[2021-07-13] MEDS ORDERED: FURO20TA4 PO (14:09)
[2021-07-13] MEDS ORDERED: RIFA550T PO (14:09)
[2021-07-13] MEDS ORDERED: HYDR-3686 PO (14:09)
[2021-07-13] MEDS ORDERED: PRED10TA PO (14:09)
[2021-07-13] MEDS ORDERED: ESCI-8 PO (14:09)
--- NOTE | 2021-07-13 14:25 | NUR ---
Pt has been sitting on her bed quietly. She denies SI/HI.
[2021-07-13] MEDS ORDERED: potassium Cl 20 mEq SR tablet PO ONE (14:35)
--- NOTE | 2021-07-13 14:51 | NUR ---
[facility] packet faxed.
--- NOTE | 2021-07-13 15:30 | NUR ---
Pt is now observed resting on her left side with her eyes closed. RR even and unlabored.
--- NOTE | 2021-07-13 16:16 | NUR ---
Pt continues to sleep. RR even and unlabored.
--- NOTE | 2021-07-13 17:26 | NUR ---
Pt is seen at [facility]. Her provider is Marcela Eldridge @ #[phone]. Her sister in-law manages the medications at home. Her name is Jean-Pierre #[phone].
[2021-07-13] MEDS ORDERED: FURO-150 PO (18:31)
[2021-07-13] MEDS ORDERED: LACT10SO32 PO (18:51)
[2021-07-13] MEDS ORDERED: POTA-82 PO (18:51)
--- NOTE | 2021-07-13 19:19 | NUR ---
Patient is awake and oriented to person and place. She denies S/I at this time. Patient requested and was given Jello.
--- NOTE | 2021-07-13 19:23 | NUR ---
Med rec complete and faxed to pharmacy.
[2021-07-13] MEDS: rifaximin 550mg tablet PO SCH (20:48)
[2021-07-13] MEDS: spironolactone 50 MG tablet PO SCH (20:48)
[2021-07-13] MEDS: hydrOXYzine 25 MG tablet PO SCH (20:48)
[2021-07-13] MEDS: lactulose 20gm/30ml cup PO SCH (20:49)
--- NOTE | 2021-07-13 21:56 | NUR ---
This patient was medication compliant and cooperative with staff. Transfer as an admit to Behavioral Health unit.
[2021-07-13 22:46] VITALS: BP 121/76
--- NOTE | 2021-07-14 00:21 | NUR ---
Admit note: Pt BIB EMS c/o alcohol abuse and hx of SI. Based on concerns from pt's siblings that she is DTS and cannot stop drinking. Pt cooperative with admission assessment, Pt presents as depressed, neat and appropriate. Pt states she uses alcohol as a coping mechanism and what triggered this episode was that her brother was threatening to kick her out of the house and she would be homeless.
[2021-07-14] MEDS: ESCITALOPRAM OXALATE 5 MG TABLET PO SCH (07:15)
[2021-07-14] MEDS: folic acid 1mg tablet PO SCH (07:15)
[2021-07-14] MEDS: furosemide 20MG tablet PO SCH (07:15)
[2021-07-14] MEDS: hydrOXYzine 25 MG tablet PO SCH ×2 (07:16→20:19)
[2021-07-14] MEDS: prednisone 10mg tablet PO SCH (07:16)
[2021-07-14] MEDS: levoTHYROXINE 25mcg tablet PO SCH (07:17)
[2021-07-14] MEDS: spironolactone 50 MG tablet PO SCH ×2 (07:17→20:19)
[2021-07-14] MEDS: potassium chloride 10mEq ER tablet PO SCH (07:17)
[2021-07-14] MEDS: lactulose 20gm/30ml cup PO SCH ×2 (07:18→20:19)
[2021-07-14 08:00] VITALS: BP 109/60
[2021-07-14] MEDS: rifaximin 550mg tablet PO SCH ×2 (08:17→20:19)
[2021-07-14] MEDS ORDERED: naltrexone 50mg tablet PO SCH (14:10)
--- NOTE | 2021-07-14 16:55 | NUR ---
Problem : Pt BIB EMS c/o alcohol abuse and hx of SI. Based on concerns from pt's siblings that she is DTS and cannot stop drinking. Pt presents as depressed, neat and appropriate. Pt states she uses alcohol as a coping mechanism and what triggered this episode was that her brother was threatening to kick her out of the house and she would be homeless. HZ: Hyperbilirubinemia, depression Interventions :Medication given as ordered. Provided with a safe and therapeutic environment, clear communication, active listening and positive encouragement. Response :Today pt mostly isolates to her room. Pt takes her medications willingly. Pt does not interact with other pts much. Pt out of room for meals and snacks. Plan :Patient continues to require crisis interruption and stabilization with medication management and monitoring in a safe and therapeutic environment.
[2021-07-14 19:00] VITALS: BP 129/72
--- NOTE | 2021-07-14 20:56 | NUR ---
PT TOOK HER HS MEDS THEN WE TALKED ABOUT HER PLAN TO TAKE HER CAMPER OFF OF HER BROTHERS PROPERTY THEN MOVE TO [place] WHERE HER SISTER LIVES. discussed giving herself a reward by saving money she would use to buy cigarettes or alcohol use that money instead to buy a dress, take a fun trip and do something with her 8 year old daughter. she talked about going back into a rehab unit in [place] as well and about her being stage 2 liver disease. pt with water/wastewater project manager went through her clothes with pt present and choose the clothes she wants to keep with her to change in after she takes a shower.
--- NOTE | 2021-07-14 21:00 | NUR ---
pt given her pictures of her and her daughter when belongings went through. pt showed them to the Rn. She is looking forward to seeing her daughter when she leaves here. her goal is to get better for herself and her daughter. she states her daughter see's her dad drink. pt talked about stopping and being an example for her daughter.
--- NOTE | 2021-07-14 21:45 | NUR ---
back from the shower. pt went into room afterwards and closed door for rest. noted the room empty of bags etc.
--- NOTE | 2021-07-15 04:56 | NUR ---
resting no changes.
[2021-07-15] MEDS: spironolactone 50 MG tablet PO SCH ×2 (07:41→20:24)
[2021-07-15] MEDS: levoTHYROXINE 25mcg tablet PO SCH (07:41)
[2021-07-15] MEDS: hydrOXYzine 25 MG tablet PO SCH ×2 (07:42→20:24)
[2021-07-15] MEDS: folic acid 1mg tablet PO SCH (07:42)
[2021-07-15] MEDS: furosemide 20MG tablet PO SCH (07:42)
[2021-07-15] MEDS: potassium chloride 10mEq ER tablet PO SCH (07:42)
[2021-07-15] MEDS: lactulose 20gm/30ml cup PO SCH ×2 (07:42→20:25)
[2021-07-15] MEDS: ESCITALOPRAM OXALATE 5 MG TABLET PO SCH (07:43)
[2021-07-15] MEDS: prednisone 10mg tablet PO SCH (07:43)
[2021-07-15] MEDS: rifaximin 550mg tablet PO SCH ×2 (07:43→20:24)
[2021-07-15] MEDS: naltrexone 50mg tablet PO SCH (08:26)
[2021-07-15 09:57] VITALS: BP 117/66
--- NOTE | 2021-07-15 17:12 | NUR ---
Nursing Progress Notes: Problem: Patient disclosed she attempted suicide several times over the past few years and her family does not feel they can keep her safe from overdosing and harming herself. Patient was admitted to [facility] on 07/13/21, and meets criteria for a 5150 based on harm to self. Patient is a severe alcoholic with end-stage liver disease and wants to stop drinking. Based on concerns from her siblings, that she is DTS and cannot stop drinking. Pt presents as depressed, neat and appropriate. Pt states she uses alcohol as a coping mechanism and what triggered this episode was that her brother was threatening to kick her out of the house and she would be homeless. Interventions: Patient Assessment and 1:1 Patient Interview completed. Patient was cooperative and pleasant throughout the day. Patient took all medications that have been prescribed without hesitation. Patient has been awake all day long. Patient received a Regular Diet, but informed that she had told staff members when she was admitted that she needs to be on a Gluten Free Diet. Reviewed specific information with patient regarding what she can eat, and spoke to Dietary and received a Gluten Free breakfast. Response: Patient is responding well to her prescribed medications. Patient was in the Community Room most of the day, and is feeling more comfortable as the days pass. Patient informs that she feels safe here and also knows she does not have access to any alcohol. Plan: Patient continues to require crisis interruption and stabilization with medication management and monitoring in a safe and therapeutic environment.
[2021-07-15 20:00] VITALS: BP 123/81
--- NOTE | 2021-07-15 20:20 | NUR ---
pt in her room on the bed with lights out laying awake in bed. She was given her hs meds and she gladly took them had no complaints stated she is going to be discharged tomorrow and happy about it said her Sister will be coming in from [place] to get her on Saturday and in the meantime will go to another family members home to stay till then.
--- NOTE | 2021-07-15 22:00 | NUR ---
resting with eyes closed appears comfortable.
--- NOTE | 2021-07-16 01:13 | NUR ---
resting without changes,
[2021-07-16] MEDS: potassium chloride 10mEq ER tablet PO SCH (07:52)
[2021-07-16] MEDS: spironolactone 50 MG tablet PO SCH (07:52)
[2021-07-16] MEDS: rifaximin 550mg tablet PO SCH (07:52)
[2021-07-16] MEDS: hydrOXYzine 25 MG tablet PO SCH (07:52)
[2021-07-16] MEDS: furosemide 20MG tablet PO SCH (07:52)
[2021-07-16] MEDS: folic acid 1mg tablet PO SCH (07:52)
[2021-07-16] MEDS: levoTHYROXINE 25mcg tablet PO SCH (07:52)
[2021-07-16] MEDS: naltrexone 50mg tablet PO SCH (07:52)
[2021-07-16] MEDS: ESCITALOPRAM OXALATE 5 MG TABLET PO SCH (07:53)
[2021-07-16] MEDS: lactulose 20gm/30ml cup PO SCH (07:55)
[2021-07-16 08:08] VITALS: BP 107/66
[2021-07-16] MEDS: prednisone 10mg tablet PO SCH (08:24)
[2021-07-16] MEDS ORDERED: NALT50TA PO (15:31)
--- NOTE | 2021-07-16 17:15 | NUR ---
Discharge Note: Received discharge orders from CRISTIANE Menon, for patient to discharge today to home. Reviewed discharge orders and they were reviewed with the patient and she signed appropriate forms. Belongings reviewed with the patient and MYRIAM Vail checked off the belongings with the patient. Patient agreed with the belongings she received. Patient received order for Naltrexone written by CRISTIANE Menon. Patient reports she will take it to her pharmacy tomorrow morning. Patient's brother arrived to apple picking supervisor the patient at 1715. Patient was escorted down to the main lobby with her belongings and discharged to her brother's private vehicle.
== END 2021-07-16 17:33 | disposition home or self-care (01) | DRG 755 ==
LOC: ER 11:12 → ED HOLD 16:00 → ADULT MH 22:12
PROVIDERS: ADMIT Psychiatry & Neurology Psychiatry; ATTEND Psychiatry & Neurology Psychiatry
DX: F43.20 Adjustment disorder, unspecified (principal); K72.10 Chronic hepatic failure without coma; K74.60 Unspecified cirrhosis of liver; Z20.822 Contact with and (suspected) exposure to COVID-19; F17.210 Nicotine dependence, cigarettes, uncomplicated; K58.9 Irritable bowel syndrome, unspecified; F10.10 Alcohol abuse, uncomplicated; E05.90 Thyrotoxicosis, unspecified without thyrotoxic crisis or storm; F32.A Depression, unspecified; I10 Essential (primary) hypertension; Z98.891 History of uterine scar from previous surgery; Z88.5 Allergy status to narcotic agent; Z71.6 Tobacco abuse counseling; Z79.899 Other long term (current) drug therapy
CPT/HCPCS: 36415; 80053; 80305; 80320; 81001; 81025; 84443; 85008; 85025; 87081; 99285; J7512; Q0177

== ENCOUNTER 2022-04-17 18:55 | Emergency (ER) | payer MEDICAID, OTHER ==
[~2022-04-17] VITALS: Ht 162.6 cm; Wt 84.1 kg
[~2022-04-17 18:55] MED LIST changes: -ATOR20TA PO; -BUSP5TAB3 PO; +ESCI-8 PO; +FOLI1TAB27 PO; +FURO-150 PO; +HYDR-3686 PO; +LACT10SO32 PO; -LEVO25TA7 PO; +LEVO50TA8 PO; +NALT50TA PO; +POTA-82 PO; +PRED10TA PO; -PROP10TA10 PO; +RIFA550T PO; +SPIR50TA5 PO; -TRAZ-251 PO
[2022-04-17 20:28] LABS: CLARITY,URINE CLEAR (Clear); COLOR,URINE YELLOW (Yellow); GLUCOSE, URINE NEGATIVE (Neg); KETONES,URINE NEGATIVE (Neg); LEUKOCYTE ESTERASE ,URINE NEGATIVE (Neg); NITRITES, URINE NEGATIVE (Neg); OCCULT BLOOD,URINE NEGATIVE (Neg); PROTEIN,URINE NEGATIVE (Neg); URINE HCG NEGATIVE (NEG); UROBILINOGEN,URINE 0.2 E.U/dL (0.2-1.0)
[2022-04-17 20:30] LABS: BASOPHILS % (AUTO) 0.3 % (0-1); EOSINOPHILS # (AUTO) 0.2 X10'3 (0-0.9); EOSINOPHILS % (AUTO) 1.2 % (0-6); HEMATOCRIT 36.5 % (35.0-45.0); HEMOGLOBIN 12.1 g/dl (12.0-16.0); LYMPHOCYTES # (AUTO) 4.4 X10'3 (1.1-4.8); MEAN CORPUSCULAR HEMOGLOBIN 30.3 PG (27.0-31.0); MEAN CORPUSCULAR HGB CONC 33.2 g/dL (33.0-36.5); MEAN CORPUSCULAR VOLUME 91.2 FL (78-98); MEAN PLATELET VOLUME 7.8 FL (7.4-10.4); MONOCYTES # (AUTO) 0.8 X10'3 (0-0.9); MONOCYTES % (AUTO) 6.3 % (2-12); NEUTROPHILS # (AUTO) 6.8 X10'3 (1.8-7.7); NEUTROPHILS % (AUTO) 56.2 % (42-75); PLATELET COUNT 93 X10'3 (140-440); RED BLOOD COUNT 4.01 X10'6 (4.20-5.60); RED CELL DISTRIBUTION WIDTH 15.7 % (11.5-14.5); WHITE BLOOD COUNT 12.1 X10'3 (4.5-11.0)
[2022-04-17 20:35] LABS: UA COLLECTION TYPE CLN CATCH MIDSTREAM
[2022-04-17 20:48] LABS: ALANINE AMINOTRANSFERASE 53 U/L (12-78); ALBUMIN 3.3 G/DL (3.4-5.0); ALBUMIN/GLOBULIN RATIO 0.8 (1.1-1.5); ALKALINE PHOSPHATASE 98 IU/L (46-116); ANION GAP 14 (8-16); ASPARTATE AMINO TRANSFERASE 47 U/L (10-37); BILIRUBIN,TOTAL 0.4 MG/DL (0.1-1.0); BLOOD UREA NITROGEN 11 MG/DL (7-18); BUN/CREATININE RATIO 14.1 (6.6-38.0); CALCIUM 8.7 MG/DL (8.5-10.1); CHLORIDE 114 MMOL/L (99-107); CREATININE 0.78 MG/DL (0.40-0.90); GLUCOSE 86 MG/DL (70-104); LIPASE 122 U/L (73-393); POTASSIUM 3.4 MMOL/L (3.5-5.1); SODIUM 148 MMOL/L (135-145); TOTAL CARBON DIOXIDE 20.3 MMOL/L (24-32); TOTAL PROTEIN 7.4 G/DL (6.4-8.2); eGFR 81 ML/MIN
[2022-04-17] MEDS ORDERED: normal saline 1000ML IV soln IVB ONE (21:40)
[2022-04-17 23:44] LABS: ETHANOL 0.276 GM/DL (0.0-0.010)
[2022-04-17] MEDS ORDERED: POTASSIUM BICARB 20meq eff tab 20 MEQ TABLET.EFF PO STA (23:54)
[2022-04-18 00:28] VITALS: BP 107/63
--- NOTE | 2022-04-18 00:31 | NUR ---
IV DC'D PT BEING DISCHARGED DRESSING APPLIED
[2022-04-27] MEDS ORDERED: GABA300C PO (09:40)
[2022-04-27] MEDS ORDERED: VIT B PO (12:25)
[2022-04-27] MEDS ORDERED: BUSP7.5T3 PO (12:25)
== END 2022-04-18 00:39 | disposition home or self-care (01) ==
LOC: ER 18:56
DX: F10.129 Alcohol abuse with intoxication, unspecified (principal); I10 Essential (primary) hypertension; F17.200 Nicotine dependence, unspecified, uncomplicated; Z88.5 Allergy status to narcotic agent; Z98.890 Other specified postprocedural states; Y90.9 Presence of alcohol in blood, level not specified
CPT/HCPCS: 36415; 80053; 80320; 81003; 81025; 83690; 85025; 96360; 96361; 99283; J7030

== ENCOUNTER 2022-06-13 19:41 | Inpatient (IN) | payer MEDICAID ==
[~2022-06-13] VITALS: Ht 162.6 cm; Wt 80.1 kg
[~2022-06-13 19:41] MED LIST changes: +BUPR100T15 PO; +BUS15T PO; +BUSP7.5T3 PO; +DOCO2CRE TP; -ESCI-8 PO; +FOLI0.8C PO; -FOLI1TAB27 PO; +GABA-530 PO; +LACT10SO3 PO; -LACT10SO32 PO; +MULT-25 PO; -NALT50TA PO; +NICO-630 TD; +NICO-907 BC; +POTA-197 PO; -POTA-82 PO; -PRED10TA PO; +PYRI100T10 PO; -RIFA550T PO; +THIA100T66 PO; +VIT B PO
[2022-06-13 21:42] LABS: URINE HCG NEGATIVE (NEG)
[2022-06-13 21:43] LABS: CLARITY,URINE SLIGHTLY CLOUDY (Clear); COLOR,URINE YELLOW (Yellow); GLUCOSE, URINE NEGATIVE (Neg); KETONES,URINE NEGATIVE (Neg); LEUKOCYTE ESTERASE ,URINE NEGATIVE (Neg); NITRITES, URINE NEGATIVE (Neg); OCCULT BLOOD,URINE TRACE-INTACT (Neg); PROTEIN,URINE NEGATIVE (Neg); UROBILINOGEN,URINE 0.2 E.U/dL (0.2-1.0)
[2022-06-13 21:48] LABS: UA COLLECTION TYPE CLN CATCH MIDSTREAM
[2022-06-13 21:49] LABS: BACTERIA,URINE 3+ /HPF (Neg); SQUAMOUS EPITHELIAL CELL,UR MANY /LPF (FEW)
[2022-06-13 21:51] LABS: TRANSITIONAL EPI CELLS,URINE FEW /HPF
[2022-06-13 22:02] LABS: URINE AMPHETAMINE SCREEN NEGATIVE (Neg); URINE BARBITUATE SCREEN NEGATIVE (Neg); URINE BENZODIAZEPINES SCREEN NEGATIVE (Neg); URINE CANNABINOID SCREEN NEGATIVE (Neg); URINE COCAINE SCREEN NEGATIVE (Neg); URINE METHADONE SCREEN NEGATIVE (Neg); URINE OPIATE SCREEN NEGATIVE (Neg); URINE PHENCYCLIDINE SCREEN NEGATIVE (Neg)
[2022-06-13 22:47] LABS: BASOPHILS # (AUTO) 0.1 X10'3 (0-0.2); BASOPHILS % (AUTO) 0.8 % (0-1); EOSINOPHILS # (AUTO) 0.2 X10'3 (0-0.9); EOSINOPHILS % (AUTO) 2.2 % (0-6); HEMATOCRIT 34.4 % (35.0-45.0); HEMOGLOBIN 11.6 g/dl (12.0-16.0); LYMPHOCYTES # (AUTO) 3.5 X10'3 (1.1-4.8); LYMPHOCYTES % (AUTO) 41.6 % (21-51); MEAN CORPUSCULAR HEMOGLOBIN 30.6 PG (27.0-31.0); MEAN CORPUSCULAR HGB CONC 33.8 g/dL (33.0-36.5); MEAN CORPUSCULAR VOLUME 90.6 FL (78-98); MEAN PLATELET VOLUME 7.3 FL (7.4-10.4); MONOCYTES # (AUTO) 0.7 X10'3 (0-0.9); MONOCYTES % (AUTO) 8.2 % (2-12); NEUTROPHILS % (AUTO) 47.2 % (42-75); PLATELET COUNT 100 X10'3 (140-440); RED BLOOD COUNT 3.79 X10'6 (4.20-5.60); RED CELL DISTRIBUTION WIDTH 16.8 % (11.5-14.5); WHITE BLOOD COUNT 8.4 X10'3 (4.5-11.0)
[2022-06-13 22:57] LABS: ALANINE AMINOTRANSFERASE 40 U/L (12-78); ALBUMIN 2.9 G/DL (3.4-5.0); ALBUMIN/GLOBULIN RATIO 0.7 (1.1-1.5); ALKALINE PHOSPHATASE 100 IU/L (46-116); ANION GAP 13 (8-16); ASPARTATE AMINO TRANSFERASE 69 U/L (10-37); BILIRUBIN,TOTAL 0.5 MG/DL (0.1-1.0); BLOOD UREA NITROGEN 12 MG/DL (7-18); BUN/CREATININE RATIO 16.7 (10.0-20.0); CALCIUM 8.1 MG/DL (8.5-10.1); CHLORIDE 110 MMOL/L (99-107); CREATININE 0.72 MG/DL (0.40-0.90); ETHANOL 0.121 GM/DL (0.0-0.010); GLUCOSE 83 MG/DL (70-104); POTASSIUM 3.2 MMOL/L (3.5-5.1); SODIUM 143 MMOL/L (135-145); TOTAL CARBON DIOXIDE 20.1 MMOL/L (24-32); eGFR 89 ML/MIN
[2022-06-13] MEDS ORDERED: POTASSIUM BICARB 20meq eff tab 20 MEQ TABLET.EFF PO STA (23:38)
--- NOTE | 2022-06-14 00:05 | NUR ---
Received pt from [facility]. Pt currently denies SI/AH, has history of depression and some anxiety. Fresh water and a snakc provided. Continue to monitor.
--- NOTE | 2022-06-14 01:10 | NUR ---
Pt appears to be sleeping.
--- NOTE | 2022-06-14 02:05 | NUR ---
records sent to [facility]
--- NOTE | 2022-06-14 03:17 | NUR ---
Pt appears to be sleeping.
--- NOTE | 2022-06-14 05:22 | NUR ---
Pt appears to be sleeping.
--- NOTE | 2022-06-14 06:15 | NUR ---
Received pt. asleep on backside with noted rise and fall of chest.
[2022-06-14] MEDS ORDERED: BUPR100T5 PO (06:57)
[2022-06-14] MEDS ORDERED: FOLI0.8T3 PO (07:08)
[2022-06-14] MEDS ORDERED: PYRI100T10 PO (07:13)
[2022-06-14] MEDS ORDERED: LEVO50TA8 PO (07:15)
[2022-06-14] MEDS ORDERED: SPIR50TA5 PO (07:16)
[2022-06-14] MEDS ORDERED: GABA-530 PO (07:17)
[2022-06-14] MEDS ORDERED: FURO-150 PO (07:17)
[2022-06-14] MEDS ORDERED: POTA-207 PO (07:18)
[2022-06-14] MEDS ORDERED: BUSP15TA3 PO (07:20)
[2022-06-14] MEDS ORDERED: DULO60CA65 PO (07:21)
[2022-06-14] MEDS ORDERED: THIA100T70 PO (07:22)
[2022-06-14] MEDS ORDERED: LACT10SO3 PO (07:40)
[2022-06-14] MEDS ORDERED: MULT-25 PO (07:41)
--- NOTE | 2022-06-14 08:07 | NUR ---
Pt eating breakfast at bedside.
[2022-06-14] MEDS ORDERED: folic acid 0.4mg tablet PO SCH ×2 (08:13→08:43)
[2022-06-14] MEDS ORDERED: lactulose 20gm/30ml cup PO SCH ×2 (08:14→08:54)
[2022-06-14] MEDS: gabapentin 100mg capsule PO SCH ×3 (08:58→21:41)
[2022-06-14] MEDS: buPROPion SR 100mg tab PO SCH (08:59)
[2022-06-14] MEDS: multivitamins, therapeutics tablet PO SCH (08:59)
[2022-06-14] MEDS: pyridoxine 50mg tablet PO SCH (08:59)
[2022-06-14] MEDS: furosemide 20MG tablet PO SCH (08:59)
[2022-06-14] MEDS: potassium Cl 20 mEq SR tablet PO SCH (09:00)
[2022-06-14] MEDS: levoTHYROXINE 25mcg tablet PO SCH (09:00)
[2022-06-14] MEDS: duloxetine 30mg CAPSULE.DR PO SCH (09:00)
[2022-06-14] MEDS: spironolactone 50 MG tablet PO SCH ×2 (09:00→21:40)
[2022-06-14] MEDS: busPIRone 15mg tablet PO SCH ×3 (09:00→21:41)
[2022-06-14] MEDS: thiamine 100mg tablet PO SCH (09:01)
--- NOTE | 2022-06-14 09:17 | NUR ---
1:1 done at bedside, medications administered with no issues. Pt A&OX4. Pt denies SI but states she feels hopeless and is tired of living her life addicted to alcohol. Pt has mild edema to bilateral feet due to not taking her prescribed water pills. She states the program she was in did not assist her in getting her prescriptions filled and shes been out since last week. Pt denies A/VH as well as HI. Pt was tearful during interview and requesting assistance in finding a therapist outside of hospital. Pt will be seen by [facility] today.
[2022-06-14] MEDS: lactulose 20gm/30ml cup PO SCH (09:24)
[2022-06-14] MEDS: folic acid 0.4mg tablet PO SCH (09:25)
--- NOTE | 2022-06-14 10:30 | NUR ---
Pt. being evaluated by [facility] at bedside.
--- NOTE | 2022-06-14 12:02 | NUR ---
Pt eating lunch at her bedside.
--- NOTE | 2022-06-14 12:53 | NUR ---
Spoke with [facility], pt has been accepted to [facility]. Pt. will be transferred later today.
--- NOTE | 2022-06-14 13:37 | NUR ---
Pt stated that if their siblings (Emily Grangervall-sister or Cori Vick-brother) call they allowed to know information about her and her whereabouts.
--- NOTE | 2022-06-14 14:27 | NUR ---
Pt watching tv at bedside and up utilizing restroom.
--- NOTE | 2022-06-14 16:32 | NUR ---
Pt awake with eyes open lying on her bed.
--- NOTE | 2022-06-14 18:21 | NUR ---
Pt ate dinner at bedside, pt is now resting on her back with eyes open. Report given to PIA beasley.
--- NOTE | 2022-06-14 19:09 | NUR ---
Received report, pt lying in her bed resting, denies SI at this time, depressed and states she is tired.
--- NOTE | 2022-06-14 19:48 | NUR ---
Pt being transferred to [facility], security here for transfer.
[2022-06-14 19:49] VITALS: BP 119/61
[2022-06-14] MEDS ORDERED: loperamide 2mg capsule PO PRN (20:00)
[2022-06-14] MEDS ORDERED: mag hydrox/Alum hydrox/simeth 30ml oral suspension PO PRN (20:00)
[2022-06-14] MEDS ORDERED: acetaminophen 325mg tablet PO PRN ×2 (20:00)
[2022-06-14] MEDS ORDERED: traZODone 50mg tablet PO PRN (21:20)
--- NOTE | 2022-06-15 00:40 | NUR ---
COMMISSIONER OF CONCILIATION NOTE: LEGAL HOLD: 5150 for DTS PROBLEM: Client reports depression with thoughts of suicide stating she wanted to "overdose on pills". INTERVENTIONS: Admit assessments. Q 15 min checks for safety. RESPONSE: Client arrived on at 19:49 from ED Overflow. Client showered and had a snack. Client was cooperative. She was tearful at times. Client was at the [facility] and was unable to take her medications. The program does not endorse the use of anti-depressants. Client became depressed and left the [place]. She reports Stage II Liver disease. Client is homeless.
[2022-06-15] MEDS: levoTHYROXINE 25mcg tablet PO SCH (07:33)
[2022-06-15 08:00] VITALS: BP 110/54
[2022-06-15] MEDS: lactulose 20gm/30ml cup PO SCH (08:42)
[2022-06-15] MEDS: spironolactone 50 MG tablet PO SCH ×2 (08:42→20:43)
[2022-06-15] MEDS: busPIRone 15mg tablet PO SCH ×3 (08:42→20:43)
[2022-06-15] MEDS: folic acid 0.4mg tablet PO SCH (08:43)
[2022-06-15] MEDS: duloxetine 30mg CAPSULE.DR PO SCH (08:43)
[2022-06-15] MEDS: potassium Cl 20 mEq SR tablet PO SCH (08:43)
[2022-06-15] MEDS: furosemide 20MG tablet PO SCH (08:44)
[2022-06-15] MEDS: multivitamins, therapeutics tablet PO SCH (08:44)
[2022-06-15] MEDS: gabapentin 100mg capsule PO SCH ×3 (08:44→20:43)
[2022-06-15] MEDS: pyridoxine 50mg tablet PO SCH (08:45)
[2022-06-15] MEDS: buPROPion SR 100mg tab PO SCH (08:45)
[2022-06-15] MEDS: nicotine 21mg patch - 24 hr TD SCH (08:45)
[2022-06-15] MEDS: thiamine 100mg tablet PO SCH (08:45)
--- NOTE | 2022-06-15 09:09 | NUR ---
[facility] Spoke to Sneha Max (ph# [phone]) at [facility] to inquire if Ana Luisa is able to return. Sneha reported Ana Luisa has been "released" from the program. She reported Ana Luisa did not want to be there and told them she was "living like a dog" when they asked her to follow basic rules of the program. Inquired if residents are able to take anti-depressants while they are there. She reported the only meds they cannot take are narcotics. Asked if Ana Luisa ran out of meds. She checked Ana Luisa's medication box and she had several pill bottles, none of them were empty. She reported her bottle of Buspar was almost full. DAILY Grey
[2022-06-15 10:01] LABS: CHOL/HDL RATIO 2.6 (0.00-4.99); CHOLESTEROL 190 MG/DL (0-200); HDL CHOLESTEROL 73 MG/DL (35-60); LDL CHOLESTEROL 100 MG/DL (50-100); TRIGLYCERIDES 51 MG/DL (20-135)
--- NOTE | 2022-06-15 11:25 | NUR ---
Completed and sent [facility] referral. DAILY Grey
[2022-06-15] MEDS ORDERED: hydrOXYzine 25 MG tablet PO PRN (13:25)
[2022-06-15] MEDS ORDERED: QUEtiapine 25mg tablet PO PRN (13:40)
--- NOTE | 2022-06-15 14:13 | NUR ---
Nursing Progress Note: Problem : Client reports depression with thoughts of suicide stating she wanted to "overdose on pills". Client arrived from ED Overflow. Client became depressed and left the [place]. She reports Stage II Liver disease. Client is homeless. Interventions : Introduced self and established rapport, maintained a safe and supportive environment, ensured contract for safety, provided clear and simple instructions, and maintained Q 15min safety checks. Response : Received pt. sleeping in bed at the beginning of the shift, she was provided direction from staff to attend breakfast in the Group Room, and afterwards retreated back to bed. 1:1 was completed at bedside, pt. presents as cooperative, pleasant, and somewhat anxious. She denies any current S/I, but states, "I was having thoughts of hurting myself so I brought myself here." Pt. then continues on to talk about how she did not like the rehabilitation program she was attending because they do not believe in medication. Also, pt. reported that she had to preform chores in order to stay there and she did not like this. However, this marketing underwriter later spoke to patients's social insurance specialist who had called the rehabilitation program the pt. was staying at. Per social insurance specialist, it was reported by the program that the pt. had not been attending medication pass and she still had full bottles of medications. Pt. remained up throughout the day and attended group in the Group Room. She was also observed to be making various telephone calls and appears motivated to find another program to attend. Plan : Pt. requires interruption of current crisis and a safe and supportive environment.
[2022-06-15 20:00] VITALS: BP 121/72
[2022-06-15] MEDS: QUEtiapine 25mg tablet PO SCH (20:43)
--- NOTE | 2022-06-16 04:04 | NUR ---
Nursing Progress Note: Problem : Client reports depression with thoughts of suicide stating she wanted to "overdose on pills". Client arrived from ED Overflow. Client became depressed and left the [place]. She reports Stage II Liver disease. Client is homeless. Interventions : Introduced self and established rapport, maintained a safe and supportive environment, ensured contract for safety, provided clear and simple instructions, and maintained Q 15min safety checks. Pt received awake, laying in bed, reading. Pt very polite and cooperative. Pt slept through night.
[2022-06-16] MEDS ORDERED: levoTHYROXINE 25mcg tablet PO SCH (07:00)
[2022-06-16] MEDS: levoTHYROXINE 25mcg tablet PO SCH (07:33)
[2022-06-16 08:00] VITALS: BP 110/68
[2022-06-16] MEDS: spironolactone 50 MG tablet PO SCH ×2 (08:40→20:43)
[2022-06-16] MEDS: duloxetine 30mg CAPSULE.DR PO SCH (08:41)
[2022-06-16] MEDS: folic acid 0.4mg tablet PO SCH (08:41)
[2022-06-16] MEDS: lactulose 20gm/30ml cup PO SCH (08:41)
[2022-06-16] MEDS: busPIRone 15mg tablet PO SCH ×2 (08:41→13:51)
[2022-06-16] MEDS: potassium Cl 20 mEq SR tablet PO SCH (08:41)
[2022-06-16] MEDS: furosemide 20MG tablet PO SCH (08:41)
[2022-06-16] MEDS: gabapentin 100mg capsule PO SCH ×3 (08:42→20:43)
[2022-06-16] MEDS: pyridoxine 50mg tablet PO SCH (08:42)
[2022-06-16] MEDS: multivitamins, therapeutics tablet PO SCH (08:42)
[2022-06-16] MEDS: buPROPion SR 100mg tab PO SCH (08:42)
[2022-06-16] MEDS: nicotine 21mg patch - 24 hr TD SCH (08:42)
[2022-06-16] MEDS: thiamine 100mg tablet PO SCH (08:42)
[2022-06-16] MEDS: magnesium hydroxide 30ml (MOM) UD suspension PO PRN (13:54)
--- NOTE | 2022-06-16 15:51 | NUR ---
Nursing Progress Note: Problem : Client reports depression with thoughts of suicide stating she wanted to "overdose on pills". Client arrived from ED Overflow. Client became depressed and left the [place]. She reports Stage II Liver disease. Client is homeless. Interventions : Maintained a safe and supportive environment, ensured contract for safety, provided clear and simple instructions, provided active listening and positive encouragement, and maintained Q 15min safety checks. Response : Received pt. sleeping in bed at the beginning of the shift, she awoke and attended breakfast in the Group Room and afterwards retreated back to bed. 1:1 was completed later at bedside, pt. continues to present as cooperative with some anxiety. She continues to deny any S/I, however admits to some depression and anxiety, but has been able to distract her thoughts during the day. Pt. states, "I have a lot of stress in my life right now." She goes on to talk about not having a place to live, not seeing her daughter, and the previous loss of a relationship with her significant other. When questioned regarding any current cravings for alcohol, pt. denies this and states, "It's mainly just when I see it in the store. I drink to relieve my stress." Pt. was observed to be interacting appropriately with others during the shift, and later was reading in her room. Plan : Pt. requires interruption of current crisis and a safe and supportive environment.
[2022-06-16 20:00] VITALS: BP 107/71
[2022-06-16] MEDS: QUEtiapine 25mg tablet PO SCH (20:43)
[2022-06-16] MEDS: busPIRone 5mg tablet PO SCH (20:43)
--- NOTE | 2022-06-17 01:35 | NUR ---
Nursing Progress Note: Ana Luisa Problem : Client reports depression with thoughts of suicide stating she wanted to "overdose on pills". Client arrived from ED Overflow. Client became depressed and left the [place]. She reports Stage II Liver disease. Client is homeless. Interventions : Maintained a safe and supportive environment, ensured contract for safety, provided clear and simple instructions, provided active listening and positive encouragement, and maintained Q 15min safety checks. Response : Received pt. lying in bed reading a book. Pt denies MH symptoms at this time and states that reading is a nice distraction for her. Pt declined snacks and took all HS medications without issue. Pt is currently sleeping without any difficulties. Will continue to monitor. Plan : Pt. requires interruption of current crisis and a safe and supportive environment.
[2022-06-17] MEDS: levoTHYROXINE 25mcg tablet PO SCH (07:27)
[2022-06-17 08:00] VITALS: BP 120/82
[2022-06-17] MEDS: lactulose 20gm/30ml cup PO SCH (08:28)
[2022-06-17] MEDS: duloxetine 30mg CAPSULE.DR PO SCH ×2 (08:28→13:34)
[2022-06-17] MEDS: busPIRone 5mg tablet PO SCH ×3 (08:28→20:26)
[2022-06-17] MEDS: spironolactone 50 MG tablet PO SCH ×2 (08:28→20:27)
[2022-06-17] MEDS: buPROPion SR 100mg tab PO SCH ×2 (08:29→15:24)
[2022-06-17] MEDS: gabapentin 100mg capsule PO SCH ×3 (08:29→20:27)
[2022-06-17] MEDS: potassium Cl 20 mEq SR tablet PO SCH (08:29)
[2022-06-17] MEDS: thiamine 100mg tablet PO SCH (08:29)
[2022-06-17] MEDS: pyridoxine 50mg tablet PO SCH (08:29)
[2022-06-17] MEDS: folic acid 0.4mg tablet PO SCH (08:29)
[2022-06-17] MEDS: multivitamins, therapeutics tablet PO SCH (08:29)
[2022-06-17] MEDS: furosemide 20MG tablet PO SCH (08:29)
[2022-06-17] MEDS: magnesium hydroxide 30ml (MOM) UD suspension PO PRN (08:30)
[2022-06-17] MEDS: nicotine 21mg patch - 24 hr TD SCH (08:30)
[2022-06-17] MEDS: NICOTINE POLACRILEX 2 MG LOZENGE BC PRN (13:30)
--- NOTE | 2022-06-17 14:10 | NUR ---
Nursing Progress Note: Problem : Client reports depression with thoughts of suicide stating she wanted to "overdose on pills". Client arrived from [facility]. Client became depressed and left the [place]. She reports Stage II Liver disease. Client is homeless. Interventions : Maintained a safe and supportive environment, ensured contract for safety, provided clear and simple instructions, provided active listening and positive encouragement, and maintained Q 15min safety checks. Response : Received pt. sleeping in bed at the beginning of the shift, she awoke and attended breakfast in the Group Room and afterwards retreated back to bed as is her routine. Pt. continues to be pleasant and cooperative. She denies any current S/I, and is working with Dr. Cabral in order to adjust her medications. Pt. reported she is looking forward to working with the social research assistant tomorrow in order to find other possible rehabilitation programs she can attend. Her thought process is linear and pt. appears goal oriented. Pt. was observed to be interacting appropriately with others during the shift and sat up in the Group Room coloring in the afternoon. Pt. was observed to be interacting appropriately with others during the shift, and later was reading in her room. Plan : Pt. requires medication adjustments and a safe and supportive environment. Addendum: 06/17/22 at 1522 by Clarita Marie RN Pt. c/o left lower tooth pain. This was endorsed to Dr. Cabral, and an order for Anbesol was obtained.
[2022-06-17] MEDS ORDERED: benzocaine (Anbesol) 12ml bottle MM PRN (15:20)
[2022-06-17 20:00] VITALS: BP 112/75
[2022-06-17] MEDS: QUEtiapine 25mg tablet PO SCH (20:26)
--- NOTE | 2022-06-18 02:24 | NUR ---
Nursing Progress Note: Problem : Client reports depression with thoughts of suicide stating she wanted to "overdose on pills". Client arrived from [facility]. Client became depressed and left the [place]. She reports Stage II Liver disease. Client is homeless. Interventions : Maintained a safe and supportive environment, ensured contract for safety, provided clear and simple instructions, provided active listening and positive encouragement, and maintained Q 15min safety checks. Response : Pt up in group room at start of shift. Interacts pleasantly with other pts and staff. She Denies depression or SI "not now." She denies A/V/H but describes having intrusive thoughts of wanting to kill herself at times. She is pleasant and appropriate watched TV with peers then returned to her room and read. Cooperative with meds. Plan : Pt. requires medication adjustments and a safe and supportive environment.
[2022-06-18 08:00] VITALS: BP 118/64
[2022-06-18] MEDS: duloxetine 30mg CAPSULE.DR PO SCH ×2 (08:31→13:25)
[2022-06-18] MEDS: busPIRone 5mg tablet PO SCH ×3 (08:31→20:20)
[2022-06-18] MEDS: folic acid 0.4mg tablet PO SCH (08:32)
[2022-06-18] MEDS: gabapentin 100mg capsule PO SCH ×3 (08:33→20:20)
[2022-06-18] MEDS: buPROPion SR 100mg tab PO SCH ×2 (08:33→13:25)
[2022-06-18] MEDS: pyridoxine 50mg tablet PO SCH (08:33)
[2022-06-18] MEDS: levoTHYROXINE 25mcg tablet PO SCH (08:34)
[2022-06-18] MEDS: potassium Cl 20 mEq SR tablet PO SCH (08:34)
[2022-06-18] MEDS: multivitamins, therapeutics tablet PO SCH (08:35)
[2022-06-18] MEDS: spironolactone 50 MG tablet PO SCH ×2 (08:35→20:20)
[2022-06-18] MEDS: thiamine 100mg tablet PO SCH (08:35)
[2022-06-18] MEDS: furosemide 20MG tablet PO SCH (08:35)
[2022-06-18] MEDS: nicotine 21mg patch - 24 hr TD SCH (08:36)
[2022-06-18] MEDS: lactulose 20gm/30ml cup PO SCH (08:37)
[2022-06-18] MEDS: NICOTINE POLACRILEX 2 MG LOZENGE BC PRN ×3 (10:26→20:24)
--- NOTE | 2022-06-18 14:42 | NUR ---
Pt. attended group today. GREGORY AlbaW
--- NOTE | 2022-06-18 14:44 | NUR ---
Requested [facility] interview, awaiting a response. DAILY [facility]
--- NOTE | 2022-06-18 18:13 | NUR ---
Nursing Progress Note: Problem: Client reports depression with thoughts of suicide stating she wanted to "overdose on pills". Client arrived from [facility]. Client became depressed and left the [place]. She reports Stage II Liver disease. Client is homeless. Interventions: Provided 1:1 assessment with therapeutic communication and active listening; Administered medications/education/monitoring; Provided clear and simple instructions; Provided active listening and positive encouragement, and maintained Q 15min safety checks. Response: Received pt. sleeping in bed at the start of the shift. Pt up for meals and snacks. She pent most of the day drawing and visiting with others in the main room. Pt states she is here until she can find a place for drug rehab. She denies S/I. Plan: Pt. requires medication adjustments and a safe and supportive environment.
[2022-06-18 20:00] VITALS: BP 125/83
[2022-06-18] MEDS: QUEtiapine 25mg tablet PO SCH (20:20)
--- NOTE | 2022-06-19 00:18 | NUR ---
Nursing Progress Note: Problem: Client reports depression with thoughts of suicide stating she wanted to "overdose on pills". Client arrived from [facility]. Client became depressed and left the [place]. She reports Stage II Liver disease. Client is homeless. Interventions: Provided 1:1 assessment with therapeutic communication and active listening; Administered medications/education/monitoring; Provided clear and simple instructions; Provided active listening and positive encouragement, and maintained Q 15min safety checks. Response: Received pt. in day area at the start of the shift, she spent time talking on the phone . She denies any current thought of suicide, no H/I, no A/V/H. Her mood appeared euthymic, affect bright, hygiene and grooming good. She is waiting to get into a different rehab per patient. Plan: Pt. requires medication adjustments and a safe and supportive environment. Addendum: 06/19/22 at 0026 by Cassie Stubbs RN Pt c/o burning with urination and feels like she might have a UTI, ordered obtained for U/A with culture if indicated.
[2022-06-19 08:00] VITALS: BP 94/59
[2022-06-19] MEDS: furosemide 20MG tablet PO SCH (08:00)
[2022-06-19] MEDS: lactulose 20gm/30ml cup PO SCH (08:11)
[2022-06-19] MEDS: folic acid 0.4mg tablet PO SCH (08:12)
[2022-06-19] MEDS: pyridoxine 50mg tablet PO SCH (08:12)
[2022-06-19] MEDS: busPIRone 5mg tablet PO SCH ×3 (08:12→20:45)
[2022-06-19] MEDS: duloxetine 30mg CAPSULE.DR PO SCH ×2 (08:12→13:16)
[2022-06-19] MEDS: potassium Cl 20 mEq SR tablet PO SCH (08:12)
[2022-06-19] MEDS: gabapentin 100mg capsule PO SCH ×3 (08:12→20:46)
[2022-06-19] MEDS: multivitamins, therapeutics tablet PO SCH (08:13)
[2022-06-19] MEDS: buPROPion SR 100mg tab PO SCH ×2 (08:13→13:16)
[2022-06-19] MEDS: thiamine 100mg tablet PO SCH (08:13)
[2022-06-19] MEDS: spironolactone 50 MG tablet PO SCH ×2 (08:14→20:44)
[2022-06-19] MEDS: levoTHYROXINE 25mcg tablet PO SCH (08:14)
[2022-06-19] MEDS: nicotine 21mg patch - 24 hr TD SCH (08:22)
[2022-06-19] MEDS: NICOTINE POLACRILEX 2 MG LOZENGE BC PRN ×3 (09:28→21:09)
--- NOTE | 2022-06-19 10:53 | NUR ---
MAURICIO INTERVIEW 2 PM TODAY DAILY [facility]
--- NOTE | 2022-06-19 12:37 | NUR ---
Initial: Pt admit for major depressive disorder. Currently on a regular gluten free diet and eating well, documented with mostly 75-100% PO intake meeting estimated nutrient needs. Per EMR pt with EtOH hx, currently receiving routine MVI, Thiamine, and Folic acid. LBM 5/8 and moderate in size though documented as constipated. Pt receiving routine and PRN bowel care. No nutrition intervention implemented at this time. Will continue to follow and make recommendations as appropriate. Recommendations: 1) Continue gluten free diet 2) Continue routine Thiamine, Folic acid, and MVI for EtOH hx 3) Routine and PRN bowel care 4) Weekly scaled weights Addendum: 06/19/22 at [address] Amended: Links added.
[2022-06-19 15:12] LABS: CLARITY,URINE CLOUDY (Clear); COLOR,URINE YELLOW (Yellow); GLUCOSE, URINE NEGATIVE (Neg); KETONES,URINE NEGATIVE (Neg); LEUKOCYTE ESTERASE ,URINE NEGATIVE (Neg); NITRITES, URINE NEGATIVE (Neg); OCCULT BLOOD,URINE MODERATE (Neg); PROTEIN,URINE NEGATIVE (Neg); UA COLLECTION TYPE VOIDED; UROBILINOGEN,URINE 0.2 E.U/dL (0.2-1.0)
[2022-06-19 15:38] LABS: SQUAMOUS EPITHELIAL CELL,UR MANY /LPF (FEW)
[2022-06-19 15:39] LABS: BACTERIA,URINE 1+ /HPF (Neg); RBC,URINE 0-2 /HPF (0-2); WBC,URINE 0-4 /HPF (0-4)
--- NOTE | 2022-06-19 15:51 | NUR ---
ACCEPTED AT [facility] DAILY [facility]
--- NOTE | 2022-06-19 17:46 | NUR ---
Nursing Progress Note: Ana Luisa Problem: Client reports depression with thoughts of suicide stating she wanted to "overdose on pills". Client arrived from [facility]. Client became depressed and left the [place]. She reports Stage II Liver disease. Client is homeless. Interventions: Provided 1:1 assessment, medication administration/education/monitoring, therapeutic communication and active listening; provided clear and simple instructions; provided active listening and positive encouragement, and maintained Q 15min safety checks. Response: Patient observed sleeping in her room at change of shift. She awoke and joined in the group room with peers for breakfast. Patient is pleasant, polite and cooperative with care. She was receptive to scheduled medication and 1:1 assessment. Pt endorsed to this quality analyst/technical writer that she wants to go to a different rehab program when she leaves this facility. She denies SI/HI, AH or VH. Pt endorsed some feelings of anxiety but explained that it has been manageable. She was active on the unit the majority of the shift, noted sitting in the group room socializing with peers. Pt had an interview with the [facility] later in the day. She was calm and pleasant the majority of the day. Pt joined for all meal and snack times in the group room with peers. Plan: Pt. requires medication adjustments and a safe and supportive environment.
--- NOTE | 2022-06-19 17:53 | NUR ---
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
[2022-06-19 19:00] VITALS: BP 130/78
[2022-06-19] MEDS: QUEtiapine 25mg tablet PO SCH (20:45)
--- NOTE | 2022-06-20 03:14 | NUR ---
Nursing Progress Note: Problem: Client reports depression with thoughts of suicide stating she wanted to "overdose on pills". Client arrived from [facility]. Client became depressed and left the [place]. She reports Stage II Liver disease. Client is homeless. Interventions: Provided 1:1 assessment with therapeutic communication and active listening; Administered medications/education/monitoring; Provided clear and simple instructions; Provided active listening and positive encouragement, and maintained Q 15min safety checks. Response: Patient is pleasant and cooperative with care; compliant with medication. PRN Nicotine lozenge provided and path was removed. Patient denied SI, HI, A/VH; no apparent delusions expressed. Patient observed talking on the phone with her mom; she explained having "a very good relationship" with her mom and claimed to have a good conversation. Patient participated in HS snack, socialized with peers and watched TV prior to bed; observed sleeping and does not appear to be having difficulty. Plan: Pt. requires medication adjustments and a safe and supportive environment.
[2022-06-20] MEDS ORDERED: QUET25TA36 PO (07:45)
[2022-06-20] MEDS ORDERED: BUSP10TA10 PO (07:45)
[2022-06-20] MEDS ORDERED: LEVO50TA8 PO (07:45)
[2022-06-20] MEDS ORDERED: NICO-687 TD (07:45)
[2022-06-20] MEDS ORDERED: DULO60CA65 PO (07:45)
[2022-06-20] MEDS ORDERED: POTA-197 PO (07:45)
[2022-06-20] MEDS ORDERED: BUPR100T15 PO (07:45)
[2022-06-20] MEDS ORDERED: MULT-25 PO (07:45)
[2022-06-20] MEDS ORDERED: LACT10SO7 PO (07:45)
[2022-06-20] MEDS ORDERED: SPIR50TA5 PO (07:45)
[2022-06-20] MEDS ORDERED: FURO20TA4 PO (07:45)
[2022-06-20] MEDS ORDERED: HYDR-3686 PO (07:45)
[2022-06-20] MEDS ORDERED: GABA-530 PO (07:45)
[2022-06-20] MEDS: nicotine 21mg patch - 24 hr TD SCH (07:57)
[2022-06-20] MEDS: lactulose 20gm/30ml cup PO SCH (07:58)
[2022-06-20] MEDS: levoTHYROXINE 25mcg tablet PO SCH (07:59)
[2022-06-20] MEDS: gabapentin 100mg capsule PO SCH ×3 (07:59→20:08)
[2022-06-20 08:00] VITALS: BP 98/64
[2022-06-20] MEDS: busPIRone 5mg tablet PO SCH ×3 (08:02→20:10)
[2022-06-20] MEDS: duloxetine 30mg CAPSULE.DR PO SCH ×2 (08:02→12:57)
[2022-06-20] MEDS: spironolactone 50 MG tablet PO SCH ×2 (08:03→20:11)
[2022-06-20] MEDS: thiamine 100mg tablet PO SCH (08:03)
[2022-06-20] MEDS: potassium Cl 20 mEq SR tablet PO SCH (08:03)
[2022-06-20] MEDS: furosemide 20MG tablet PO SCH (08:03)
[2022-06-20] MEDS: buPROPion SR 100mg tab PO SCH ×2 (08:03→12:55)
[2022-06-20] MEDS: pyridoxine 50mg tablet PO SCH (08:04)
[2022-06-20] MEDS: multivitamins, therapeutics tablet PO SCH (08:04)
[2022-06-20] MEDS: folic acid 0.4mg tablet PO SCH (08:04)
[2022-06-20] MEDS: NICOTINE POLACRILEX 2 MG LOZENGE BC PRN ×5 (10:16→21:51)
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
[2022-06-20 20:00] VITALS: BP 113/74
[2022-06-20] MEDS: QUEtiapine 25mg tablet PO SCH (20:09)
--- NOTE | 2022-06-21 04:15 | NUR ---
Nursing Progress Note: Problem: Client reports depression with thoughts of suicide stating she wanted to "overdose on pills".Client arrived from [facility]. Client became depressed and left the [place]. She reports Stage II Liver disease. Client is homeless. Interventions: Provided 1:1 assessment with therapeutic communication and active listening; Administered medications/education/monitoring; Provided clear and simple instructions; Provided active listening and positive encouragement, and maintained Q 15min safety checks. Response: Patient came right up to nurse at beginning of shift asking for a nicotine lozenge. Patient retuned to room until snack time. Patient stated her concern about where she will go after she leaves here but as long as its better then her last place she will be happy. Patient took all night medications without issue and sat in community room socializing with other patients. Patient asked again for a nicotine lozenge before going to bed. Plan: Pt. requires medication adjustments and a safe and supportive environment. Would like to work towards completely finishing treatment and return back to work. Consistent reinforcement seems to help pt
--- NOTE | 2022-06-21 04:50 | NUR ---
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
[2022-06-21 07:00] VITALS: BP 90/62
[2022-06-21] MEDS: spironolactone 50 MG tablet PO SCH ×2 (08:02→20:35)
[2022-06-21] MEDS: potassium Cl 20 mEq SR tablet PO SCH (08:02)
[2022-06-21] MEDS: multivitamins, therapeutics tablet PO SCH (08:03)
[2022-06-21] MEDS: gabapentin 100mg capsule PO SCH ×3 (08:03→20:35)
[2022-06-21] MEDS: levoTHYROXINE 25mcg tablet PO SCH (08:03)
[2022-06-21] MEDS: duloxetine 30mg CAPSULE.DR PO SCH ×2 (08:03→13:58)
[2022-06-21] MEDS: busPIRone 5mg tablet PO SCH ×3 (08:04→20:35)
[2022-06-21] MEDS: folic acid 0.4mg tablet PO SCH (08:04)
[2022-06-21] MEDS: furosemide 20MG tablet PO SCH (08:04)
[2022-06-21] MEDS: thiamine 100mg tablet PO SCH (08:04)
[2022-06-21] MEDS: buPROPion SR 100mg tab PO SCH ×2 (08:04→13:57)
[2022-06-21] MEDS: lactulose 20gm/30ml cup PO SCH (08:05)
[2022-06-21] MEDS: pyridoxine 50mg tablet PO SCH (08:05)
[2022-06-21] MEDS: nicotine 21mg patch - 24 hr TD SCH (08:05)
[2022-06-21] MEDS: NICOTINE POLACRILEX 2 MG LOZENGE BC PRN ×5 (11:22→20:35)
[2022-06-21 14:11] LABS: ALBUMIN 3.2 G/DL (3.4-5.0); ANION GAP 7 (8-16); BLOOD UREA NITROGEN 11 MG/DL (7-18); BUN/CREATININE RATIO 10.2 (10.0-20.0); CHLORIDE 102 MMOL/L (99-107); CREATININE 1.08 MG/DL (0.40-0.90); GLUCOSE 107 MG/DL (70-104); POTASSIUM 4.2 MMOL/L (3.5-5.1); SODIUM 136 MMOL/L (135-145); eGFR 56 ML/MIN
--- NOTE | 2022-06-21 17:41 | NUR ---
Nursing Progress Note: Problem: Client reports depression with thoughts of suicide stating she wanted to "overdose on pills". Client arrived from [facility]. Client became depressed and left the [place]. She reports Stage II Liver disease. Client is homeless. Interventions: Provided 1:1 assessment with therapeutic communication and active listening; Administered medications/education/monitoring; Provided clear and simple instructions; Provided active listening and positive encouragement, and maintained Q 15min safety checks. Response: Patient sleeping in bed at change of shift. Patient joins her peers in the group room for breakfast. Patient takes medications without incident. Patient has spent most of the day in the group room. Patient has been pleasant and states that she is looking forward to going to [facility], but states that she really needs a rehab due to her alcoholism. Patient is social and cooperative on the unit. Plan: Pt. requires medication adjustments and a safe and supportive environment. Would like to work towards completely finishing treatment and return back to work. Consistent reinforcement seems to help pt
[2022-06-21 19:00] VITALS: BP 127/77
[2022-06-21] MEDS: QUEtiapine 25mg tablet PO SCH (20:35)
--- NOTE | 2022-06-22 02:37 | NUR ---
Nursing Progress Note: Problem: Client reports depression with thoughts of suicide stating she wanted to "overdose on pills". Client arrived from [facility]. Client became depressed and left the [place]. She reports Stage II Liver disease. Client is homeless. Interventions: Provided 1:1 assessment with therapeutic communication and active listening; Administered medications/education/monitoring; Provided clear and simple instructions; Provided active listening and positive encouragement, and maintained Q 15min safety checks. Response: Patient is pleasant and cooperative with care; compliant with medication. PRN Nicotine lozenges provided and patch removed. Patient denied SI, HI, A/VH; no apparent delusions expressed. Patient social with peers, participated in HS snack and talked on the phone prior to bed; observed sleeping and does not appear to be having difficulty. Plan: [facility] discharge for 06/22/22.
[2022-06-22] MEDS: busPIRone 5mg tablet PO SCH (07:55)
[2022-06-22] MEDS: levoTHYROXINE 25mcg tablet PO SCH (07:55)
[2022-06-22] MEDS: multivitamins, therapeutics tablet PO SCH (07:56)
[2022-06-22] MEDS: folic acid 0.4mg tablet PO SCH (07:56)
[2022-06-22] MEDS: buPROPion SR 100mg tab PO SCH (07:56)
[2022-06-22] MEDS: gabapentin 100mg capsule PO SCH (07:56)
[2022-06-22] MEDS: duloxetine 30mg CAPSULE.DR PO SCH (07:56)
[2022-06-22] MEDS: pyridoxine 50mg tablet PO SCH (07:56)
[2022-06-22] MEDS: thiamine 100mg tablet PO SCH (07:58)
[2022-06-22] MEDS: potassium Cl 20 mEq SR tablet PO SCH (07:58)
[2022-06-22] MEDS: furosemide 20MG tablet PO SCH (07:58)
[2022-06-22] MEDS: spironolactone 50 MG tablet PO SCH (07:58)
[2022-06-22] MEDS: lactulose 20gm/30ml cup PO SCH (07:58)
[2022-06-22] MEDS: nicotine 21mg patch - 24 hr TD SCH (07:59)
[2022-06-22 08:00] VITALS: BP 107/67
[2022-06-22] MEDS: NICOTINE POLACRILEX 2 MG LOZENGE BC PRN (09:36)
--- NOTE | 2022-06-22 10:00 | NUR ---
Pt. discharged while primary RN on break.
== END 2022-06-22 10:25 | disposition home or self-care (01) | DRG 751 ==
LOC: ER 19:42 → ED HOLD 06-14 12:45 → ADULT MH 06-14 19:53
PROVIDERS: ADMIT Psychiatry & Neurology Psychiatry; ATTEND Psychiatry & Neurology Psychiatry
DX: F33.2 Major depressive disorder, recurrent severe without psychotic features (principal); E72.20 Disorder of urea cycle metabolism, unspecified; R45.851 Suicidal ideations; K70.9 Alcoholic liver disease, unspecified; E03.9 Hypothyroidism, unspecified; B00.9 Herpesviral infection, unspecified; G62.9 Polyneuropathy, unspecified; F41.9 Anxiety disorder, unspecified; F17.210 Nicotine dependence, cigarettes, uncomplicated; I10 Essential (primary) hypertension; F10.20 Alcohol dependence, uncomplicated; Z20.822 Contact with and (suspected) exposure to COVID-19; T50.992A Poisoning by other drugs, medicaments and biological substances, intentional self-harm, initial encounter; E87.6 Hypokalemia; Y92.89 Other specified places as the place of occurrence of the external cause; Z98.891 History of uterine scar from previous surgery; Z88.5 Allergy status to narcotic agent; Z91.09 Other allergy status, other than to drugs and biological substances; Z81.8 Family history of other mental and behavioral disorders; Z83.3 Family history of diabetes mellitus; Z83.511 Family history of glaucoma; Z79.899 Other long term (current) drug therapy
CPT/HCPCS: 36415; 71045; 80048; 80053; 80061; 80305; 80320; 81001; 81025; 84443; 85025; 87081; 87811; 99285